=== PATIENT | female | born 1945 | race Caucasian/White ===

== ENCOUNTER 2016-05-01 10:37 | Inpatient (IN) | payer MEDICARE ==
[~2016-05-01] VITALS: Ht 157.5 cm; Wt 53.4 kg
[~2016-05-01 10:37] MED LIST: DIAZ10 PO; GABA300C5 PO; HYDR-3583 PO
[2016-05-03] MEDS ORDERED: AZEL1SPR2 EACH NARE (10:07)
[2016-05-06] MEDS ORDERED: THROMBIN (TOPICAL) 5,000 UNIT VIAL ONE (07:03)
[2016-05-06] MEDS ORDERED: GELFOAM SIZE 100 ONE (07:04)
[2016-05-06] MEDS ORDERED: LIDOCAINE 1%/EPINEPHrine 1:100,000 SOLN 20 ML VIAL ONE ×2 (07:04)
[2016-05-06] MEDS ORDERED: GENTAMICIN SULFATE 80 MG/2 ML VIAL ONE (07:04)
[2016-05-06 07:30] VITALS: BP 143/65; PULSE 98; RESP 16; TEMP 98.3; O2SAT 99
[2016-05-06] MEDS ORDERED: CETI10 PO (07:39)
[2016-05-06 07:54] LABS: AUTOMATED NEUTROPHIL # 3.9 TH/MM3 (1.8-7.7); BASOPHIL % 0.9 % (0.0-2.0); EOSINOPHIL # 0.1 TH/MM3 (0-0.4); EOSINOPHIL % 2.6 % (0.0-4.0); HEMATOCRIT 40.3 % (35.0-46.0); HEMO FLAGS DIFF FINAL; LYMPH % 11.3 % (9.0-44.0); LYMPHOCYTE # 0.6 TH/MM3 (1.0-4.8); MEAN CELL VOLUME 99.5 FL (80.0-100.0); MEAN CORPUSCULAR HEMOGLOBIN 34.3 PG (27.0-34.0); MEAN CORPUSCULAR HGB CONC 34.5 % (32.0-36.0); MONO % 10.9 % (0.0-8.0); NEUT % 74.3 % (16.0-70.0); PLATELET COUNT 206 TH/MM3 (150-450); RED BLOOD COUNT 4.04 MIL/MM3 (4.00-5.30); RED CELL DISTRIBUTION WIDTH 13.3 % (11.6-17.2); WHITE BLOOD COUNT 5.3 TH/MM3 (4.0-11.0)
[2016-05-06] MEDS ORDERED: ceFAZolin INJ 1,000 MG VIAL ONE (07:55)
[2016-05-06] MEDS ORDERED: SODIUM CHLORIDE 0.9% INJ 100 ML ONE (07:55)
[2016-05-06 08:01] LABS: APTT (PATIENT) 26.7 SEC (24.3-30.1); INTERNATIONAL NORMALIZED RATIO 0.9 RATIO; PROTHROMBIN TIME - PATIENT 10.3 SEC (9.8-11.6)
[2016-05-06 08:11] LABS: BICARBONATE 30.4 MEQ/L (21.0-32.0); POTASSIUM 4.2 MEQ/L (3.5-5.1)
[2016-05-06] MEDS ORDERED: LACTATED RINGER'S 1000 ML IV SCH (08:30)
[2016-05-06] MEDS ORDERED: ceFAZolin 1,000 MG/NS 100 ML IV SCH ×2 (08:30)
[2016-05-06] MEDS ORDERED: METOPROLOL TARTRATE 25 MG TAB PO PRN (08:30)
[2016-05-06] MEDS ORDERED: LACTATED RINGER'S 1000 ML INJ 1,000 ML IV SCH (08:30)
[2016-05-06] MEDS ORDERED: INSULIN HUMAN REGULAR 1,000 UNITS/10 ML VIAL SQ PRN (08:30)
[2016-05-06] MEDS ORDERED: SODIUM CHLORID 0.9% 500 ML IV SCH (08:30)
[2016-05-06] MEDS ORDERED: fentaNYL CITRATE 250 MCG/5 ML AMP ONE ×2 (08:34)
[2016-05-06] MEDS ORDERED: MIDAZOLAM HCL 2 MG/2 ML VIAL ONE (08:34)
[2016-05-06] MEDS ORDERED: PROPOFOL 500 MG/50 ML INJ 50 ML ONE (08:34)
[2016-05-06] MEDS ORDERED: FAMOTIDINE 20 MG/2 ML VIAL ONE (08:34)
[2016-05-06] MEDS ORDERED: HYDROmorphone HCL PF 2 MG/ML VIAL ONE (08:34)
[2016-05-06] MEDS ORDERED: DEXAMETHASONE SOD PHOS 4 MG/ML VIAL ONE (08:35)
[2016-05-06] MEDS ORDERED: ARTIFICIAL TEARS OPTH OINT 3.5 APPLIC/3.5 GM TUBO ONE (08:41)
[2016-05-06] MEDS ORDERED: PROPOFOL 200 MG/20 ML AMP IV ONE (09:14)
[2016-05-06] MEDS ORDERED: ONDANSETRON HCL 4 MG/2 ML VIAL IV PUSH ONE (09:14)
[2016-05-06] MEDS ORDERED: LACTATED RINGER'S 1000 ML INJ 1,000 ML IV ONE (09:14)
[2016-05-06] MEDS ORDERED: ePHEDrine/NS 50 MG/5 ML SYR IV ONE (09:14)
[2016-05-06] MEDS ORDERED: PHENYLEPH/NS 1000 MCG/10 ML SYR IV ONE (09:14)
[2016-05-06] MEDS ORDERED: DO NOT ADM ANY ANTICOAGULANT DRUGS XX PRN (13:32)
[2016-05-06] MEDS ORDERED: NALOXONE HCL 0.4 MG/ML AMP IV PRN (13:45)
[2016-05-06] MEDS ORDERED: SODIUM CHLORIDE 0.9% FLUSH 5 ML FLUSH IVF PRN (13:45)
--- NOTE | 2016-05-06 14:07 | PD.OP ---
Operative Report Date of Surgery: May 06, 2016 Preoperative Diagnosis: (1) Intervertebral cervical disc disorder with myelopathy, cervical region (2) Spinal stenosis in cervical region C2 3, C3 4, C4 5 stenosis with dorsal cord compression Cervical spondylosis and degenerative disc disease Cervical myelopathy Postoperative Diagnosis: (1) Intervertebral cervical disc disorder with myelopathy, cervical region (2) Spinal stenosis in cervical region C2 3, C3 4, C4 5 stenosis with dorsal cord compression Cervical spondylosis and degenerative disc disease Cervical myelopathy Procedure: C2 3, C3 4, C4 5 level decompressive [id number]-exxfgkdlfqlysx Anesthesia: Gen. Surgeon: Jarek Bray Timing Machine Operator(s): Seymour York Operation and Findings: Findings: Significant ligament hypertrophy at the levels of decompression with significant dorsal canal compression. Procedure in detail: The patient was brought into the operating room and general endotracheal anesthesia induced without difficulty. Lines were established by anesthesia Knee high sequential compression devices were placed Appropriate timeout procedure was performed with all personnel present and in agreement The Garcia 3 point fixation device was placed. The patient was in a cervical collar for positioning Leads for intraoperative neuro monitoring were placed in a baseline study obtained The patient was turned into prone position on the 3080 table on the Oscar frame with the undersigned maintaining control of the head and neck. The head and neck were secured to the operating room table with the Garcia adapter with the neck slightly flexed with 3-4 fingerbreadths between the chin and chest. The neck position was checked with intraoperative C-arm and felt to be satisfactory. The cervical collar was removed. All extremities were appropriately padded. The back of the head and neck were shaved with clippers and sterilely prepped and draped. 1% Xylocaine with epinephrine was used for local infiltration over the incision site was made in the midline posterior neck and carried sharply down to the spinous processes of . The microscope was used as needed during the decompression portion of the procedure.. On the right and left side the posterior muscle attachments and fascia were incised with the Bovie and elevated away from the lamina and facet and spinous processes at the C2-C5 levels with a ortiz elevator out to the lateral margin of the facets. The inferior aspect of the C2, C3, C4 lamina and superior C3, C4, C5 lamina were removed with the TPS drill with the 5 mm bone bur followed by the 4 mm samuel bur, and the Kerrison rongeur to further decompress the spinal canal at these levels. Hypertrophied ligamentum flavum was elevated away from the dura at each level with a thin ligament dissector and resected with the 3 mm thin footplate Kerrison rongeur, taking care not to place any significant compression on the dura or exiting nerve root. The dorsal lateral thecal sac appeared well decompressed at the end of the laminectomy portion of the procedure with good pulsations of the CSF space. The region was well irrigated with antibiotic irrigation. Bleeding was carefully controlled with bipolar forceps A 7 mm flat fluted drain was left at the operative site and brought out through an incision in the upper thoracic region and secured to the skin with nylon suture The closure was performed with 0 Vicryl interrupted for the deep and superficial fascia with 3-0 Vicryl interrupted subcutaneous closure and 4-0 Vicryl subcutaneous closure. A dressing of sterile Mastisol and Steri-Strips and a Primapore dressing was placed. The patient was placed back in a cervical collar and released from the Garcia adapter and turned back into supine position on the recovery room bed. The Garcia 3 point fixation device was then removed. The patient was taken to recovery room in stable condition All counts were correct at the end of the case. Estimated blood loss was 300 cc No specimen was sent to pathology Neural monitoring remained stable during the procedure Jarek Bray MD May 06, 2016 14:07
--- NOTE | 2016-05-06 14:18 | RADRPT ---
EXAM DATE/TIME: 05/06/2016 10:58 [facility] COMPARISON: FLUOROSCOPY PORTABLE UP TO 1HR, May 06, 2016, 0:00. INDICATIONS : C2-5 Laminectomy. MEDICAL HISTORY : Hypertension. Chronic obstructive pulmonary disease. Smoker. SURGICAL HISTORY : Fusion, cervical. Lobectomy. ENCOUNTER: Initial ACUITY: 1 day PAIN SCORE: Non-responsive. LOCATION: Cervical spine. FINDINGS: A single lateral view of the cervical spine was performed. The vertebral bodies are in normal alignm ent down to C7 without evidence of subluxation. There is anterior surgical plate and screws traversin g the cervical spine at the level of C5-C7. Surgical hardware is seen posterior to the levels of C2-C 4. Prevertebral soft tissues are normal in thickness. CONCLUSION: As above. Guerda Moise MD on May 06, 2016 at 14:14 Board Certified Radiologist. This report was verified electronically.
[2016-05-06] MEDS ORDERED: *morphine SULFATE 8 MG/ML PERIprocedure ONLY ONE (14:36)
[2016-05-06] MEDS: 1/2 NS + KCL 20 MEQ INJ 1,000 ML IV SCH ×2 (14:53→23:10)
[2016-05-06] MEDS ORDERED: RESP: ALBUTEROL 2.5 MG/3 ML NEB (PRN) NEB (15:00)
[2016-05-06] MEDS ORDERED: ACETAMINOPHEN/HYDROcodone 325 MG/5 MG TAB PO PRN (15:00)
[2016-05-06] MEDS ORDERED: PROMETHAZINE INJ 25 MG/ML VIAL IM PRN (15:00)
[2016-05-06] MEDS ORDERED: CYCLOBENZAPRINE HCL 10 MG TAB PO PRN (15:00)
[2016-05-06] MEDS ORDERED: ONDANSETRON HCL 4 MG/2 ML VIAL IV PRN (15:00)
[2016-05-06] MEDS ORDERED: HYDROmorphone HCL PF 1 MG/ML VIAL IV PRN (15:00)
[2016-05-06] MEDS ORDERED: *HYDROmorphone PF 1 MG VIAL PERIprocedural Use ONLY ONE (17:38)
[2016-05-06] MEDS ORDERED: HYDROmorphone HCL PF 1 MG/ML VIAL IV ONE (17:38)
[2016-05-06] MEDS: GABAPENTIN 300 MG CAP PO SCH (18:00)
[2016-05-06] MEDS: DOCUSATE SODIUM 100 MG CAP PO SCH (21:00)
[2016-05-06] MEDS: SODIUM CHLORIDE 0.9% FLUSH 5 ML FLUSH IVF SCH (21:00)
[2016-05-06 22:30] VITALS: BP 116/58; PULSE 83; RESP 16; TEMP 97.6; O2SAT 99
[2016-05-06] MEDS: ACETAMINOPHEN/HYDROcodone 325 MG/10 MG TAB PO PRN (23:10)
[2016-05-06] MEDS: DIAZEPAM 10 MG TAB PO PRN (23:10)
[2016-05-07] VITALS (8 sets, daily range): BP systolic 107–162; BP diastolic 52–70; PULSE 72–102; RESP 16–18; TEMP 97.3–102.2; O2SAT 94–100
[2016-05-07] MEDS: MORPHINE SULFATE 4 MG/ML INJ IV PRN ×3 (05:10→20:38)
[2016-05-07] MEDS: DOCUSATE SODIUM 100 MG CAP PO SCH ×2 (08:22→20:18)
[2016-05-07] MEDS: GABAPENTIN 300 MG CAP PO SCH ×3 (08:22→17:39)
[2016-05-07] MEDS: CETIRIZINE HCL 10 MG TAB PO SCH (08:22)
[2016-05-07] MEDS: PANTOPRAZOLE SOD 40 MG DELAYED RELEASE TAB PO SCH (08:22)
[2016-05-07] MEDS: SODIUM CHLORIDE 0.9% FLUSH 5 ML FLUSH IVF SCH ×2 (08:23→20:19)
[2016-05-07] MEDS: ACETAMINOPHEN/HYDROcodone 325 MG/10 MG TAB PO PRN ×3 (08:23→17:39)
[2016-05-07] MEDS: 1/2 NS + KCL 20 MEQ INJ 1,000 ML IV SCH ×2 (08:28→20:19)
[2016-05-07 11:31] LABS: AUTOMATED NEUTROPHIL # 6.5 TH/MM3 (1.8-7.7); BASOPHIL % 0.3 % (0.0-2.0); EOSINOPHIL % 0.4 % (0.0-4.0); HEMATOCRIT 36.7 % (35.0-46.0); HEMO FLAGS DIFF FINAL; LYMPH % 9.1 % (9.0-44.0); LYMPHOCYTE # 0.7 TH/MM3 (1.0-4.8); MEAN CELL VOLUME 98.7 FL (80.0-100.0); MEAN CORPUSCULAR HEMOGLOBIN 33.4 PG (27.0-34.0); MEAN CORPUSCULAR HGB CONC 33.9 % (32.0-36.0); MONO % 8.1 % (0.0-8.0); NEUT % 82.1 % (16.0-70.0); PLATELET COUNT 191 TH/MM3 (150-450); RED BLOOD COUNT 3.72 MIL/MM3 (4.00-5.30); RED CELL DISTRIBUTION WIDTH 13.1 % (11.6-17.2); WHITE BLOOD COUNT 7.9 TH/MM3 (4.0-11.0)
[2016-05-07 12:03] LABS: BICARBONATE 32.9 MEQ/L (21.0-32.0); POTASSIUM 3.7 MEQ/L (3.5-5.1)
[2016-05-07] MEDS: DIAZEPAM 10 MG TAB PO PRN ×2 (12:42→17:39)
[2016-05-07] MEDS: REMOVE OLD NICODERM (NICOTINE) PATCH TD SCH (20:30)
[2016-05-07] MEDS ORDERED: ACETAMINOPHEN 1000 MG/100 ML VIAL IV ONE (21:00)
[2016-05-07] MEDS ORDERED: ACETAMINOPHEN 325 MG TAB PO PRN (21:00)
--- NOTE | 2016-05-07 21:23 | HHI.NSPN ---
History Chief Complaint: neck pain Interval History 05/06/16: C2- C5 decompressive semilaminectomy 05/07/16: moderate drain output. Fever Review of Systems General: Positive for: fever System Review Comments Hand numbness improved post op left L5 distribution pain Exam Results Vital Signs Date Time Temp Pulse Resp B/P Pulse Ox O2 Delivery O2 Flow Rate FiO2 05/07/16 20:27 95 Nasal Cannula 05/07/16 16:00 98.0 96 16 107/52 05/07/16 07:24 3.00 Intake and Output 05/06/16 05/06/16 05/07/16 08:00 16:00 00:00 Intake Total 100 ml 240 ml Output Total 390 ml 895 ml Balance -290 ml -655 ml Physical Examination dressing dry Resp - mild wheeze Cardiac reg - no murmur alert appropriate moderate drain output sensory mild decreased hands motor normal all extremities Lab, Micro, Other Results Laboratory Tests Test 05/07/16 11:20 White Blood Count 7.9 TH/MM3 Red Blood Count 3.72 MIL/MM3 Hemoglobin 12.4 GM/DL Hematocrit 36.7 % Mean Corpuscular Volume 98.7 FL Mean Corpuscular Hemoglobin 33.4 PG Mean Corpuscular Hemoglobin 33.9 % Concent Red Cell Distribution Width 13.1 % Platelet Count 191 TH/MM3 Mean Platelet Volume 7.4 FL Neutrophils (%) (Auto) 82.1 % Lymphocytes (%) (Auto) 9.1 % Monocytes (%) (Auto) 8.1 % Eosinophils (%) (Auto) 0.4 % Basophils (%) (Auto) 0.3 % Neutrophils # (Auto) 6.5 TH/MM3 Lymphocytes # (Auto) 0.7 TH/MM3 Monocytes # (Auto) 0.6 TH/MM3 Eosinophils # (Auto) 0.0 TH/MM3 Basophils # (Auto) 0.0 TH/MM3 CBC Comment DIFF FINAL Differential Comment Sodium Level 142 MEQ/L Potassium Level 3.7 MEQ/L Chloride Level 103 MEQ/L Carbon Dioxide Level 32.9 MEQ/L Anion Gap 6 MEQ/L Blood Urea Nitrogen 7 MG/DL Creatinine 0.64 MG/DL Estimat Glomerular Filtration 92 ML/MIN Rate Random Glucose 101 MG/DL Calcium Level 8.8 MG/DL Medical Decision Making Impression and Plan Impression: Neuro exam stable post op Fever Plan Resp Tx Inc Spirometer Cont Drain PT MRI L-Spine - left radiculopathy Jarek Bray MD May 07, 2016 21:23
[2016-05-07] MEDS ORDERED: REMOVE OLD NICODERM (NICOTINE) PATCH TD SCH (21:30)
[2016-05-07] MEDS: NICOTINE 14 MG/24 HR PATCH TD SCH (22:08)
[2016-05-08] VITALS (8 sets, daily range): BP systolic 100–120; BP diastolic 49–78; PULSE 79–106; RESP 16–20; TEMP 97.8–100; O2SAT 94–100
[2016-05-08] MEDS: ACETAMINOPHEN/HYDROcodone 325 MG/10 MG TAB PO PRN ×5 (00:45→20:03)
[2016-05-08] MEDS: RESP: ALBUTEROL 2.5 MG/IPRATROPIUM 0.5 MG NEB (SCH) NEB ×4 (04:28→21:14)
[2016-05-08] MEDS: DOCUSATE SODIUM 100 MG CAP PO SCH ×2 (09:19→22:32)
[2016-05-08] MEDS: CETIRIZINE HCL 10 MG TAB PO SCH (09:19)
[2016-05-08] MEDS: NICOTINE 14 MG/24 HR PATCH TD SCH (09:19)
[2016-05-08] MEDS: PANTOPRAZOLE SOD 40 MG DELAYED RELEASE TAB PO SCH (09:19)
[2016-05-08] MEDS: GABAPENTIN 300 MG CAP PO SCH ×3 (09:19→20:03)
[2016-05-08] MEDS: SODIUM CHLORIDE 0.9% FLUSH 5 ML FLUSH IVF SCH ×2 (09:19→21:00)
[2016-05-08] MEDS: REMOVE OLD NICODERM (NICOTINE) PATCH TD SCH (09:20)
[2016-05-08] MEDS: MORPHINE SULFATE 4 MG/ML INJ IV PRN ×2 (11:54→15:22)
--- NOTE | 2016-05-08 13:06 | RADRPT ---
EXAM DATE/TIME: 05/08/2016 12:23 [facility] COMPARISON: CT LUMBAR SPINE W/O CONTRAST, June 05, 2015, 22:53. MRI HIP RIGHT W/O CONTRAST, October 17, 2015, 1 3:49. FLUOROSCOPY PORTABLE UP TO 1HR, May 06, 2016, 0:00. INDICATIONS : Radiculopathy down left leg. MEDICAL HISTORY : Carcinoma, lung. Chronic obstructive pulmonary disease. SURGICAL HISTORY : Fusion, cervical. Fusion, lumbar. Rt lobectomy ENCOUNTER: [facility]ela ACUITY: > 1 year PAIN SCORE: 4/10 LOCATION: lower back TECHNIQUE: Multiplanar multisequence MRI of the lumbar spine was performed without contrast. FINDINGS: The most caudal appearing lumbar vertebra is numbered as L5. VERTEBRAE: There is diffuse high T1 and T2 signal identified throughout the imaged thoracic and lumbar spine con sistent with fatty replacement of marrow. There is low T1 and T2 signal identified within the inferio r anterior aspect of the L1 vertebral body and adjacent superior endplate of the T2 vertebral body co rresponding to an area of dense sclerosis seen on comparison CT. There is posterior fusion hardware p resent at the level of L4/L5. CONUS: Normal level and configuration. T12-L1: The thecal sac has a normal diameter. No evidence of disc bulge or protrusion. The neural foramina are patent bilaterally. L1-L2: There is disc space narrowing and a broad-based posterior disc protrusion present which causes modera te narrowing of the spinal canal in the AP dimension. This appears to extend to the level of the neur al foramina bilaterally, right greater than left causing significant neural foraminal narrowing.. L2-L3: There is disc space narrowing and a small annular disc protrusion present which contributes to mild n arrowing of the spinal canal in the AP dimension. There are mild bilateral facet degenerative changes which contribute to mild narrowing of the neuroforaminal bilaterally, right greater than left. L3-L4: A small posterior and left sided disc protrusion which continues to mild narrowing of the spinal nicolas l in AP dimension. There are moderate bilateral facet degenerative changes which when combined with t he left-sided disc cause significant left-sided neural foraminal narrowing.. L4-L5: The thecal sac has a normal diameter. No evidence of disc bulge or protrusion. The neural foramina are patent bilaterally. L5-S1: The thecal sac has a normal diameter small broad-based posterior disc bulge present which does not si gnificantly narrow the spinal canal that extends to the left neuroforamen causing moderate left-sided neural foraminal narrowing.. The neural foramina are patent bilaterally. CONCLUSION: No abnormal marrow is seen to suggest metastatic disease. There are multiple levels of degenerative d isc changes which contribute to varying degrees of neural foraminal narrowing. There is moderate narr owing caused by the posterior central disc at the level of L1/L2.. Guerda Moise MD on May 08, 2016 at 12:55 Board Certified Radiologist. This report was verified electronically.
--- NOTE | 2016-05-08 20:06 | HHI.DCPOC ---
Discharge Care Plan Diagnosis: (1) Intervertebral cervical disc disorder with myelopathy, cervical region Your Health Problems Are: Difficulty with ADL Incision/Drains Exercise Tolerance Loss of Movements Chronic Pain Goals to Promote Your Health * To prevent worsening of your condition and complications * To maintain your health at the optimal level Directions to Meet Your Goals Take your medications as prescribed Follow your dietary instruction Follow activity as directed Keep your appointments as scheduled Take your immunizations and boosters as scheduled If your symptoms worsen call your PCP, if no PCP go to Urgent Care Center or Emergency Room Smoking is Dangerous to Your Health. Avoid second hand smoke Call the 24-hour hour crisis hotline for domestic abuse at Jarek Bray MD May 08, 2016 20:06
--- NOTE | 2016-05-08 20:08 | HHI.FF ---
Face to Face Verification Diagnosis: (1) Intervertebral cervical disc disorder with myelopathy, cervical region Home Health Nursing Order: Wound care and dressing changes Nursing assessment with vital signs Instructions: Assess home safety, fall risk, need for home physical therapy I have seen patient Gladys Leung on 05/08/16. My clinical findings support the need for the requested home health care services because: Ltd mobility - disease progression Deconditioned w/ increased weakness Limited ability to care for self High risk of falls I certify that my clinical findings support that this patient is homebound because: Post-op weakness Hx COPD- exertion dyspnea/weakness Unsteady gait/balance Unsafe to leave home unassisted Unable to use public transportation Jarek Bray MD May 08, 2016 20:08
--- NOTE | 2016-05-08 20:12 | HHI.DS ---
Discharge Summary Admission Date May 06, 2016 at 06:40 Discharge Date: May 09, 2016 Admitting Diagnosis (1) Intervertebral cervical disc disorder with myelopathy, cervical region Diagnosis: Principal Procedures 05/06/16: C2-C5 decompressive semi- laminectomy CBC/BMP: 05/07/16 1120 05/07/16 1120 Significant Findings Laboratory Tests Test 05/06/16 05/07/16 07:30 11:20 Mean Corpuscular Hemoglobin 34.3 PG (27.0-34.0) Neutrophils (%) (Auto) 74.3 % 82.1 % (16.0-70.0) (16.0-70.0) Monocytes (%) (Auto) 10.9 % 8.1 % (0.0-8.0) (0.0-8.0) Lymphocytes # (Auto) 0.6 TH/MM3 0.7 TH/MM3 (1.0-4.8) (1.0-4.8) Creatinine 0.42 MG/DL (0.50-1.00) Random Glucose 111 MG/DL (74-106) Red Blood Count 3.72 MIL/MM3 (4.00-5.30) Carbon Dioxide Level 32.9 MEQ/L (21.0-32.0) Imaging Last Impressions Lumbar Spine MRI 05/08/16 0000 Signed Impressions: Service Date/Time: Sunday, May 08, 2016 12:23 - CONCLUSION: No abnormal marrow is seen to suggest metastatic disease. There are multiple levels of degenerative disc changes which contribute to varying degrees of neural foraminal narrowing. There is moderate narrowing caused by the posterior central disc at the level of L1/L2.. Guerda Moise MD Cervical Spine X-Ray 05/06/16 0000 Signed Impressions: Service Date/Time: Friday, May 06, 2016 10:58 - CONCLUSION: As above. Guerda Moise MD Hospital Course Patient admitted for above noted procedure performed without complication Postop day #1 fever resolved with acetaminophen, breathing treatments. Postop day #2-mobilizing better out of bed. Pain still somewhat poorly controlled. IV Toradol added. Drain discontinued. Continuing physical therapy Pt Condition on Discharge: Stable Discharge Disposition: Disch w/ Home Health Serv Discharge Instructions DIET: Follow Instructions for: As Tolerated, No Restrictions ACTIVITIES You can perform: Weight Bearing As Dian Activities to Avoid: Lifting/Bending, Strenuous Activity New Medications: Hydrocodone-Acetaminophen (Hydrocodone-Acetaminophen) 10-325 mg Tab 1 TAB PO Q4H PRN PAIN SCALE 6 TO 10 #60 TAB Continued Medications: Azelastine Nasal Renovo (Azelastine Nasal Renovo) 0.1% Renovo 1 SPRAY EACH NARE BID Allergies #1 Ref 0 BOTTLE Cetirizine (Cetirizine) 10 Mg Tab 10 MG PO DAILY Allergies Ref 0 TAB Diazepam (Valium) 10 Mg Tab 10 MG PO TID PRN ANXIETY Ref 0 TAB Gabapentin (Gabapentin) 300 Mg Cap 300 MG PO TID #90 CAP Hydrocodone-Acetaminophen (Hydrocodone-Acetaminophen) 10-325 mg Tab 1 TAB PO Q4H PRN PAIN Ref 0 TAB Jarek Bray MD May 08, 2016 20:12
--- NOTE | 2016-05-08 20:15 | HHI.NSPN ---
History Chief Complaint: neck pain Interval History 05/06/16: C2- C5 decompressive semilaminectomy 05/07/16: moderate drain output. Fever Exam Results Vital Signs Date Time Temp Pulse Resp B/P Pulse Ox O2 Delivery O2 Flow Rate FiO2 05/08/16 18:15 98.0 91 20 104/59 96 05/08/16 15:47 21 05/07/16 20:27 Nasal Cannula 05/07/16 07:24 3.00 Intake and Output 05/07/16 05/07/16 05/08/16 08:00 16:00 00:00 Intake Total 360 ml 1399 ml 1200 ml Output Total 1200 ml 3030 ml 2115 ml Balance -840 ml -1631 ml -915 ml Physical Examination dressing dry Resp -clear to auscultation Cardiac reg - no murmur alert appropriate Mild drain output-mostly serous sensory mild decreased hands motor normal all extremities Ambulates with assist and physical therapy Lab, Micro, Other Results 05/08/16 lumbar spine MRI images reviewed.-Agree with findings as noted below: Lumbar Spine MRI 05/08/16 0000 Signed Impressions: Service Date/Time: Sunday, May 08, 2016 12:23 - CONCLUSION: No abnormal marrow is seen to suggest metastatic disease. There are multiple levels of degenerative disc changes which contribute to varying degrees of neural foraminal narrowing. There is moderate narrowing caused by the posterior central disc at the level of L1/L2.. Guerda Moise MD Cervical Spine X-Ray 05/06/16 0000 Signed Impressions: Service Date/Time: Friday, May 06, 2016 10:58 - CONCLUSION: As above. Guerda Moise MD Medical Decision Making Impression and Plan Impression: Neuro exam stable post op-remains moderately painful Fever-resolved Plan At Toradol for additional pain control Resp Tx Inc Spirometer Drain discontinued today PT-discussed with physical therapist today Left lumbar radiculopathy versus neuropathy-continue conservative treatment Discussed with patient. Anticipate discharge home 05/09/16 of she continues to improve in regards to pain vital signs remain stable without recurrent fever Jarek Bray MD May 08, 2016 20:15
[2016-05-08] MEDS: KETOROLAC TROMETHAMINE 60 MG/2 ML (IM) VIAL IM SCH (22:33)
[2016-05-09] VITALS (7 sets, daily range): BP systolic 91–137; BP diastolic 53–69; PULSE 69–105; RESP 16–18; TEMP 97.9–99.2; O2SAT 91–98
[2016-05-09] MEDS: RESP: ALBUTEROL 2.5 MG/IPRATROPIUM 0.5 MG NEB (SCH) NEB ×2 (03:57→10:21)
[2016-05-09] MEDS: KETOROLAC TROMETHAMINE 60 MG/2 ML (IM) VIAL IM SCH ×3 (04:41→14:52)
[2016-05-09] MEDS ORDERED: HYDR-3583 PO (08:54)
[2016-05-09] MEDS: SODIUM CHLORIDE 0.9% FLUSH 5 ML FLUSH IVF SCH (09:00)
[2016-05-09] MEDS: REMOVE OLD NICODERM (NICOTINE) PATCH TD SCH (09:00)
[2016-05-09] MEDS: DOCUSATE SODIUM 100 MG CAP PO SCH (09:07)
[2016-05-09] MEDS: PANTOPRAZOLE SOD 40 MG DELAYED RELEASE TAB PO SCH (09:07)
[2016-05-09] MEDS: CETIRIZINE HCL 10 MG TAB PO SCH (09:07)
[2016-05-09] MEDS: GABAPENTIN 300 MG CAP PO SCH ×2 (09:07→12:57)
[2016-05-09] MEDS: NICOTINE 14 MG/24 HR PATCH TD SCH (09:13)
[2016-05-09] MEDS ORDERED: POLYETHYLENE GLYCOL 17 GM PKG PO ONE (12:15)
[2016-05-09] MEDS: ACETAMINOPHEN/HYDROcodone 325 MG/10 MG TAB PO PRN (14:14)
[2016-05-09] MEDS: DIAZEPAM 10 MG TAB PO PRN (14:15)
[2016-07-31] MEDS ORDERED: GABA300C5 PO (12:30)
[2016-07-31] MEDS ORDERED: DIAZ10 PO (12:30)
== END 2016-05-09 16:46 | disposition home health service (06) | DRG 519 ==
LOC: HSDI 05-06 06:40 → HOCA 05-06 22:27
PROVIDERS: ADMIT Neurological Surgery; ATTEND Neurological Surgery
PROC: 00NW0ZZ Release Cervical Spinal Cord, Open Approach (ICD-10-PCS; principal; 2016-05-06 08:40)
DX: M50.021 Cervical disc disorder at C4-C5 level with myelopathy (principal); M47.12 Other spondylosis with myelopathy, cervical region; M48.02 Spinal stenosis, cervical region; M50.01 Cervical disc disorder with myelopathy, high cervical region; M50.30 Other cervical disc degeneration, unspecified cervical region; R50.9 Fever, unspecified
CPT/HCPCS: 72020; 72148; 76000; 80048; 85025; 85610; 85730; 86850; 86900; 86901; 94150; 94640; 94664; C1713; J0131; J0690; J1100; J1170; J1580; J1885; J2250; J2270; J2370; J2405; J3010; J7120; L0150; L0172

== ENCOUNTER 2016-08-08 14:22 | Emergency (ER) | payer MEDICARE ==
[~2016-08-08] VITALS: Ht 157.5 cm; Wt 54.5 kg
[~2016-08-08 14:22] MED LIST changes: +AZEL1SPR2 EACH NARE; +CETI10 PO
[2016-08-08 14:23] VITALS: BP 133/63; PULSE 114; RESP 20; TEMP 98.9; O2SAT 96
--- NOTE | 2016-08-08 14:38 | PD ---
Physical Exam Time Seen by Provider: 14:35 Narrative 71 F c/o L forearm and wrist pain after fall last night. Denies hitting head, LOC. Left hip pain too. Denies neck pain, back pain. Denies N/V. Ambulatory in triage. VSS Seen in triage, awaiting bed placement. Data Data Last Documented VS Vital Signs Date Time Temp Pulse Resp B/P Pulse Ox O2 Delivery O2 Flow Rate FiO2 08/08/16 14:23 98.9 114 20 133/63 96 Room Air [facility] Supervised Visit with LLOYD: Ragini Zavala Aug 08, 2016 14:38
--- NOTE | 2016-08-08 16:45 | PD ---
HPI Chief Complaint: Fall Time Seen by Provider: 16:30 Travel History International Travel<30 days: No Contact w/Intl Traveler<30days: No Traveled to known affect area: No History of Present Illness HPI Patient is a 71-year-old female presenting to emergency department for evaluation of left hand, wrist, forearm pain. Patient states she slipped yesterday falling onto her hand. Her loss of consciousness. She denies any shortness of breath, chest pain, dizziness before the fall. Patient states she falls frequently. She reports the pain is a 10 out of 10, she's been taking hydrocodone 10/325. PFSH Past Medical History Arthritis: Yes Blood Disorders: No Anxiety: Yes Depression: No Cancer: Yes (LUNG) Cardiovascular Problems: No Chemotherapy: Yes (03/2013) COPD: Yes Diabetes: No Diminished Hearing: No Endocrine: No Genitourinary: No Hepatitis: No Hiatal Hernia: No Hypertension: Yes Immune Disorder: No Medical other: No Musculoskeletal: Yes (ARTHRITIS, DDD) Neurologic: No (MULTIPLE FALLS FROM LUMBAR ISSUE LEFT LEG, NUMBNESS IN HAND AND FEET) Psychiatric: Yes (ANXIETY) Reproductive: No Respiratory: Yes (ALLERGIES) Radiation Therapy: Yes (11/2015) Thyroid Disease: No Tetanus Vaccination: Unknown Influenza Vaccination: Yes ?: Not Menopausal: Yes Past Surgical History Abdominal Surgery: No AICD: No Body Medical Devices: HARDWARE RIGHT UPPER ARM, CAGE LUMBAR, HARDWARE CERVICAL Cardiac Surgery: No Section: Yes Ear Surgery: No Endocrine Surgery: No Eye Surgery: No Genitourinary Surgery: No Gynecologic Surgery: Yes (C SECTION) Joint Replacement: No Neurologic Surgery: No Oral Surgery: No Pacemaker: No Thoracic Surgery: Yes (RIGHT MIDDLE LOBECTOMY, IMPLANTED PORT INSERTION, PORT REMOVAL) Other Surgery: Yes (CESARIAN, PORT PLACEMENT, C4-C5 FUSION, L4-L5 FUSION) Social History Alcohol Use: Yes (occ) Tobacco Use: Yes (cig. 1ppd, ) Substance Use: No Allergies-Medications (Allergen,Severity, Reaction): Coded Allergies: No Known Allergies (Unverified , 08/08/16) Reported Meds & Prescriptions Reported Meds & Active Scripts Active Valium (Diazepam) 10 Mg Tab 10 Mg PO TID PRN Gabapentin 300 Mg Cap 300 Mg PO TID Hydrocodone-Acetaminophen 10-325 mg Tab 1 Tab PO Q4H PRN Reported Cetirizine (Cetirizine HCl) 10 Mg Tab 10 Mg PO DAILY Azelastine Nasal Vest (Azelastine HCl) 0.1% Vest 1 Vest EACH NARE BID Review of Systems Except as stated in HPI: all other systems reviewed are Neg Musculoskeletal: Positive: Myalgias, Arthralgias, Edema, Pain Skin: Positive Change in Pigmentation Physical Exam Narrative GENERAL: Well-developed, well-nourished, alert elderly female. Resting comfortably in no acute distress. SKIN: Focused skin assessment warm/dry. Edema and ecchymosis noted to the distal left forearm, wrist, dorsal aspect of left hand. Positive radial pulse, brisk less than 3 second capillary refill. HEAD: Atraumatic. Normocephalic. EYES: Pupils equal and round. No scleral icterus. No injection or drainage. ENT: No nasal bleeding or discharge. Mucous membranes pink and moist. NECK: Trachea midline. No JVD. CARDIOVASCULAR: Regular rate and rhythm. No murmur appreciated. RESPIRATORY: No accessory muscle use. Clear to auscultation. Breath sounds slightly diminished in bases. GASTROINTESTINAL: Abdomen soft, non-tender, nondistended. Hepatic and splenic margins not palpable. MUSCULOSKELETAL: No obvious deformities. No clubbing. No cyanosis. No edema. NEUROLOGICAL: Awake and alert. No obvious cranial nerve deficits. Motor grossly within normal limits. Normal speech. PSYCHIATRIC: Appropriate mood and affect; insight and judgment normal. Data Data Last Documented VS Vital Signs Date Time Temp Pulse Resp B/P Pulse Ox O2 Delivery O2 Flow Rate FiO2 08/08/16 18:38 88 18 135/65 96 Room Air 08/08/16 14:23 98.9 Orders Hand, Complete ([id number]) (08/08/16 ) Wrist, Complete ([id number]) (08/08/16 ) Forearm (2vws) (08/08/16 ) Complete Blood Count With Diff (08/08/16 16:32) Basic Metabolic Panel (Bmp) (08/08/16 16:32) Act Partial Throm Time (Ptt) (08/08/16 16:32) Prothrombin Time / Inr (Pt) (08/08/16 16:32) Iv Access Insert/Monitor (08/08/16 16:32) Splinting (08/08/16 ) Fiberglass Sugartong Sp Ad Arm (08/08/16 ) Sling Cradle Arm (08/08/16 ) Morphine Inj (Morphine Inj) (08/08/16 18:30) Labs Laboratory Tests Test 08/08/16 17:04 White Blood Count 6.2 TH/MM3 Red Blood Count 3.90 MIL/MM3 Hemoglobin 13.2 GM/DL Hematocrit 38.2 % Mean Corpuscular Volume 97.9 FL Mean Corpuscular Hemoglobin 33.9 PG Mean Corpuscular Hemoglobin 34.6 % Concent Red Cell Distribution Width 14.1 % Platelet Count 166 TH/MM3 Mean Platelet Volume 7.5 FL Neutrophils (%) (Auto) 82.0 % Lymphocytes (%) (Auto) 8.9 % Monocytes (%) (Auto) 7.4 % Eosinophils (%) (Auto) 0.4 % Basophils (%) (Auto) 1.3 % Neutrophils # (Auto) 5.0 TH/MM3 Lymphocytes # (Auto) 0.6 TH/MM3 Monocytes # (Auto) 0.5 TH/MM3 Eosinophils # (Auto) 0.0 TH/MM3 Basophils # (Auto) 0.1 TH/MM3 CBC Comment DIFF FINAL Differential Comment Prothrombin Time 10.3 SEC Prothromb Time International 0.9 RATIO Ratio Activated Partial 26.8 SEC Thromboplast Time Sodium Level 142 MEQ/L Potassium Level 3.3 MEQ/L Chloride Level 105 MEQ/L Carbon Dioxide Level 31.9 MEQ/L Anion Gap 5 MEQ/L Blood Urea Nitrogen 5 MG/DL Creatinine 0.45 MG/DL Estimat Glomerular Filtration 138 ML/MIN Rate Random Glucose 92 MG/DL Calcium Level 8.5 MG/DL MDM Medical Decision Making Medical Screen Exam Complete: Yes Emergency Medical Condition: Yes Interpretation(s) Last Impressions Wrist X-Ray 08/08/16 0000 Signed Impressions: Service Date/Time: July 16:46 - CONCLUSION: Slightly comminuted, slightly angled distal radial fracture without extent into the radiocarpal articulation. Jean-Claude Lynch MD Radius/Ulna X-Ray 08/08/16 0000 Signed Impressions: Service Date/Time: July 16:48 - CONCLUSION: Distal radial fracture as described above. Jean-Claude Lynch MD Hand X-Ray 08/08/16 0000 Signed Impressions: Service Date/Time: July 16:44 - CONCLUSION: Erosive osteoarthritic change involving multiple DIP joints and PIP joints. No acute fracture is seen in the hand although there is a distal radial fracture. Jean-Claude Lynch MD Laboratory Tests Test 08/08/16 17:04 White Blood Count 6.2 TH/MM3 Red Blood Count 3.90 MIL/MM3 Hemoglobin 13.2 GM/DL Hematocrit 38.2 % Mean Corpuscular Volume 97.9 FL Mean Corpuscular Hemoglobin 33.9 PG Mean Corpuscular Hemoglobin 34.6 % Concent Red Cell Distribution Width 14.1 % Platelet Count 166 TH/MM3 Mean Platelet Volume 7.5 FL Neutrophils (%) (Auto) 82.0 % Lymphocytes (%) (Auto) 8.9 % Monocytes (%) (Auto) 7.4 % Eosinophils (%) (Auto) 0.4 % Basophils (%) (Auto) 1.3 % Neutrophils # (Auto) 5.0 TH/MM3 Lymphocytes # (Auto) 0.6 TH/MM3 Monocytes # (Auto) 0.5 TH/MM3 Eosinophils # (Auto) 0.0 TH/MM3 Basophils # (Auto) 0.1 TH/MM3 CBC Comment DIFF FINAL Differential Comment Prothrombin Time 10.3 SEC Prothromb Time International 0.9 RATIO Ratio Activated Partial 26.8 SEC Thromboplast Time Sodium Level 142 MEQ/L Potassium Level 3.3 MEQ/L Chloride Level 105 MEQ/L Carbon Dioxide Level 31.9 MEQ/L Anion Gap 5 MEQ/L Blood Urea Nitrogen 5 MG/DL Creatinine 0.45 MG/DL Estimat Glomerular Filtration 138 ML/MIN Rate Random Glucose 92 MG/DL Calcium Level 8.5 MG/DL Vital Signs Date Time Temp Pulse Resp B/P Pulse Ox O2 Delivery O2 Flow Rate FiO2 08/08/16 16:07 17 08/08/16 14:23 98.9 114 20 133/63 96 Room Air Differential Diagnosis Fracture versus sprain versus strain versus dislocation versus other Narrative Course Patient is a 71-year-old female presented to our evaluation of left arm and wrist pain after fall she sustained yesterday. She is neurovascularly intact. Labs and imaging were ordered and pending. X-ray shows distal radius fracture. There is a transverse fracture of the distal radius 1 cm proximal to the articulating surface the ulna is intact, the radial head is intact. CBC is unremarkable, chemistry with a potassium of 3.3 otherwise unremarkable. Coags are normal. She last ate at 4 PM this afternoon. [facility] ortho surgeon paged, Dr. Connors. Pt placed in sugar tong splint. Dr. Connors requested to see patient in the office at 7:30 in the morning. Patient will continue home dose of hydrocodone. She is encouraged to elevate extremity, return to emergency department any new or worsening symptoms. She is encouraged to keep appointment with Dr. Connors in the morning. She verbalized understanding of these instructions. Patient stable for discharge. Diagnosis Primary Impression: Distal radius fracture, left Qualified Code: S52.592A - Other closed fracture of distal end of left radius , initial encounter Referrals: Jai Connors MD [address] Mcdonald will see you in the office tomorrow morning at 7:30 Patient Instructions: Arm Fracture in Adults (ED), General Instructions Additional Instructions: Follow-up with Dr. Connors in the office tomorrow morning at 7:30 Extremity elevated to help with swelling May take her home dose of pain medication as previously prescribed Follow-up with her primary doctor Return to emergency department for any new or worsening symptoms Med/Other Pt SpecificInfo: No Change to Meds Disposition: 01 DISCHARGE HOME Condition: Stable Elvia Chao Aug 08, 2016 16:45
--- NOTE | 2016-08-08 17:00 | PD ---
Data Data Last Documented VS Vital Signs Date Time Temp Pulse Resp B/P Pulse Ox O2 Delivery O2 Flow Rate FiO2 08/08/16 16:07 17 08/08/16 14:23 98.9 114 133/63 96 Room Air Orders Hand, Complete ([id number]) (08/08/16 ) Wrist, Complete ([id number]) (08/08/16 ) Forearm (2vws) (08/08/16 ) Complete Blood Count With Diff (08/08/16 16:32) Basic Metabolic Panel (Bmp) (08/08/16 16:32) Act Partial Throm Time (Ptt) (08/08/16 16:32) Prothrombin Time / Inr (Pt) (08/08/16 16:32) Iv Access Insert/Monitor (08/08/16 16:32) MDM Supervised Visit with LLOYD: Yes Narrative Course The history, exam, and medical decision-making in the associated mid-level provider note were completed with my assistance. I reviewed and agree with the findings presented. I attest that I had a [id number] encounter with the patient on the same day, and personally performed and documented my assessment and findings in the medical record. *My assessment and Findings: 71-year-old woman who presents with fall on her wrist, x-ray shows left distal radius fracture. We'll plan splint, outpatient follow-up. Jean-Claude Oquendo MD Aug 08, 2016 17:00
--- NOTE | 2016-08-08 17:03 | RADRPT ---
EXAM DATE/TIME: 08/08/2016 16:48 [facility] COMPARISON: No previous studies available for comparison. INDICATIONS : Fracture. MEDICAL HISTORY : None. SURGICAL HISTORY : None. ENCOUNTER: Initial ACUITY: 2 days PAIN SCORE: 10/10 LOCATION: Left forearm FINDINGS: Two-view left forearm demonstrates there is a transverse fracture of the distal radius 1 cm proximal to the articulating surface. The ulna is unremarkable. The radial head is intact. CONCLUSION: Distal radial fracture as described above. Jean-Claude Lynch MD on August 08, 2016 at 17:00 Board Certified Radiologist. This report was verified electronically.
--- NOTE | 2016-08-08 17:05 | RADRPT ---
EXAM DATE/TIME: 08/08/2016 16:44 [facility] COMPARISON: No previous studies available for comparison. INDICATIONS : Trauma MEDICAL HISTORY : None. SURGICAL HISTORY : None. ENCOUNTER: Initial ACUITY: 2 days PAIN SCORE: 10/10 LOCATION: Left hand FINDINGS: Three-view left hand demonstrates there is marked osteoarthritis involving the second and third DIP j oints and the fifth DIP and multiple PIP joints. No acute fracture is seen. There is no visible eros ions. There is a distal radial fracture. CONCLUSION: Erosive osteoarthritic change involving multiple DIP joints and PIP joints. No acute fracture is seen in the hand although there is a distal radial fracture. Jean-Claude Lynch MD on August 08, 2016 at 17:02 Board Certified Radiologist. This report was verified electronically.
--- NOTE | 2016-08-08 17:09 | RADRPT ---
EXAM DATE/TIME: 08/08/2016 16:46 [facility] COMPARISON: No previous studies available for comparison. INDICATIONS : Trauma MEDICAL HISTORY : None. SURGICAL HISTORY : None. ENCOUNTER: Initial ACUITY: 2 days PAIN SCORE: 10/10 LOCATION: Left wrist FINDINGS: Three-view left wrist demonstrates there is a transverse fracture of the distal radius approximately 1 cm proximal to the growth plate. There is a slight volar angulation to the fracture. There is some comminution posteriorly. I do not believe it is intraarticular. The distal ulna is unremarkable. The carpal bones are unremarkable. CONCLUSION: Slightly comminuted, slightly angled distal radial fracture without extent into the r adiocarpal articulation. Jean-Claude Lynch MD on August 08, 2016 at 17:01 Board Certified Radiologist. This report was verified electronically.
[2016-08-08 17:15] LABS: BASOPHIL # 0.1 TH/MM3 (0-0.2); BASOPHIL % 1.3 % (0.0-2.0); EOSINOPHIL % 0.4 % (0.0-4.0); HEMATOCRIT 38.2 % (35.0-46.0); HEMO FLAGS DIFF FINAL; LYMPH % 8.9 % (9.0-44.0); LYMPHOCYTE # 0.6 TH/MM3 (1.0-4.8); MEAN CELL VOLUME 97.9 FL (80.0-100.0); MEAN CORPUSCULAR HEMOGLOBIN 33.9 PG (27.0-34.0); MEAN CORPUSCULAR HGB CONC 34.6 % (32.0-36.0); MONO % 7.4 % (0.0-8.0); PLATELET COUNT 166 TH/MM3 (150-450); RED CELL DISTRIBUTION WIDTH 14.1 % (11.6-17.2); WHITE BLOOD COUNT 6.2 TH/MM3 (4.0-11.0)
[2016-08-08 17:33] LABS: BICARBONATE 31.9 MEQ/L (21.0-32.0); POTASSIUM 3.3 MEQ/L (3.5-5.1)
[2016-08-08 17:41] LABS: APTT (PATIENT) 26.8 SEC (24.3-30.1); INTERNATIONAL NORMALIZED RATIO 0.9 RATIO; PROTHROMBIN TIME - PATIENT 10.3 SEC (9.8-11.6)
[2016-08-08] MEDS ORDERED: MORPHINE SULFATE 4 MG/ML INJ IV PUSH ONE (18:30)
[2016-08-08 18:38] VITALS: BP 135/65; PULSE 88; RESP 18; O2SAT 96
[2016-08-08 19:09] VITALS: RESP 18
== END 2016-08-08 19:16 | disposition home or self-care (01) ==
LOC: NEPD 14:22
DX: S52.592A Other fractures of lower end of left radius, initial encounter for closed fracture (principal); W18.30XA Fall on same level, unspecified, initial encounter; Y93.9 Activity, unspecified; Y92.9 Unspecified place or not applicable; Y99.9 Unspecified external cause status
CPT/HCPCS: 29125; 73090; 73110; 73130; 80048; 85025; 85610; 85730; 96374; 99283; J2270

== ENCOUNTER 2018-01-01 15:31 | Inpatient (IN) ==
--- NOTE | 2018-01-01 17:47 | ED ---
HPI General Chief Complaint: Extremity Injury, Lower Stated Complaint: rt hip pain Time Seen by Provider: 01/01/18 16:46 Source: patient Mode of arrival: ambulatory Limitations: no limitations History of Present Illness HPI Narrative: 72-year-old female presents to the emergency department with complaint of right hip pain and right thigh pain after she fell on Friday night from tripping over an uneven step. She says she has been falling a lot lately secondary to her chronic low back pain that she needs surgery for. She denies hitting her head or loss of consciousness. Denies anticoagulant therapy. Denies syncopal episode. Denies chest pain, shortness breath, abdominal pain, nausea, vomiting. Denies paresthesias, loss of sensation to the affected extremity. Says she has been in bed since she fell because she cannot bear weight. She has been using a bedpan to urinate and and has not been getting up to go to the bathroom. She has been taking hydrocodone for her pain. Rates pain 10/10. Constantly aggravated. Is somewhat relieved by the hydrocodone. Primary care provider is Dr. koch that he D. History of chronic low back pain, lung cancer, history of chemo and radiation. No allergies. Has no other medical complaints. No other modifying factors or associated signs and symptoms. Related Data Home Medications Medication Instructions Recorded Confirmed Unable to Obtain Home Meds 01/01/18 01/01/18 Allergies Allergy/AdvReac Type Severity Reaction Status Date / Time No Known Allergies Allergy Uncoded 10/04/16 15:32 Review of Systems ROS: all other systems reviewed are negative [facility] Social History Social History Substance History: No History of Abuse Smoking Status: Former smoker How Often Do You Have a Drink Containing Alcohol: Monthly or less Recent Travel in [facility] within the Last 8 Weeks: No Recent Out of Country Travel within the Last 8 Weeks: No Immunization History Tetanus Immunization: Unsure Hx Influenza Vaccine This Season: Yes Exam Narrative Exam Narrative: GENERAL: Thin, elderly, female patient, in no acute distress SKIN: Warm and dry. HEAD: Atraumatic. Normocephalic. EYES: Pupils equal and round. No scleral icterus. No injection or drainage. ENT: Mucosa pink and moist. Airway patent. NECK: Trachea midline. CARDIOVASCULAR: Regular rate and rhythm. No murmur appreciated. RESPIRATORY: No accessory muscle use. Clear to auscultation. Breath sounds equal bilaterally. GASTROINTESTINAL: Abdomen soft, non-tender, nondistended. Hepatic and splenic margins not palpable. Bowel sounds are active 4 quadrants. MUSCULOSKELETAL: Right lower extremity with external rotation noted; tenderness to palpation to the thigh and hip area; unable to assess range of motion secondary to pain patient guarding; right lower extremity is supple and non- tense with 2+ pedal pulse and sensory intact; toes are pink and warm and with sensory intact. No leg length discrepancy noted. No obvious deformities. No clubbing. No cyanosis. No edema. NEUROLOGICAL: Awake and alert. Oriented 3. No obvious cranial nerve deficits. Motor grossly within normal limits. Normal speech. PSYCHIATRIC: Appropriate mood and affect; insight and judgment normal. Course Initial Documented Vital Signs Temperature 98.6 F 01/01/18 16:22 Pulse Rate 121 H 01/01/18 16:22 Respiratory Rate 14 01/01/18 16:22 Blood Pressure 148/63 H 01/01/18 16:22 Pulse Oximetry 96 01/01/18 16:22 Last Documented Vital Signs Temperature 98.6 F 01/01/18 16:22 Pulse Rate 95 H 01/01/18 19:53 Respiratory Rate 16 01/01/18 19:53 Blood Pressure 132/68 01/01/18 19:53 Pulse Oximetry 95 01/01/18 19:53 Medical Decision Making MDM Narrative Medical decision making narrative: 72-year-old female with right hip and thigh pain after mechanical fall on Friday. Right hip with AP pelvis, right femur x- ray ordered. Patient took hydrocodone prior to arrival. 1900Patient is signed out to me. X-ray imaging does show an intertrochanteric fracture of the right proximal femur. Preop lab work, chest x-ray, EKG are ordered. 2009 Lab work is reviewed and without acute concern. Patient is now requesting pain control. She will be given 2 mg of morphine IV. A call was placed to Dr. Ravi, orthopedic on-call. Medical Screen Exam Complete: Yes Emergency Medical Condition: Yes Differential Diagnosis Differential Diagnosis: Fall, hip fracture, pelvic fracture, femur fracture, leg strain, muscle spasms Lab Data Result diagrams: 01/01/18 19:00 01/01/18 19:00 Lab Results 09/10/1301/01/18 01/01/18 Range/Units 19:00 19:00 19:00 WBC 6.6 (4.0-11.0) th/mm3 RBC 4.19 (4.00-5.30) mil/mm3 Hgb 14.5 (11.6-15.3) gm/dL Hct 42.3 (35.0-46.0) % MCV 100.8 H (80.0-100.0) fL MCH 34.5 H (27.0-34.0) pg MCHC 34.2 (32.0-36.0) % RDW 13.9 (11.6-17.2) % Plt Count 167 (150-450) th/mm3 MPV 8.2 (7.0-11.0) fL Neut % (Auto) 79.7 H (16.0-70.0) % Lymph % (Auto) 9.2 (9.0-44.0) % [place] % (Auto) 10.2 H (0.0-8.0) % Eos % (Auto) 0.5 (0.0-4.0) % Baso % (Auto) 0.4 (0.0-2.0) % Neut # (Auto) 5.2 (1.8-7.7) th/mm3 Lymph # (Auto) 0.6 L (1.0-4.8) th/mm3 [place] # (Auto) 0.7 (0.0-0.9) th/mm3 Eos # (Auto) 0.0 (0.0-0.4) th/mm3 Baso # (Auto) 0.0 (0.0-0.2) th/mm3 WBC Differential . Differential Comment Auto diff final PT 9.8 (9.8-11.6) sec INR 1.0 Ratio APTT 28.0 (24.3-30.1) sec Sodium 140 (136-145) meq/L Potassium 3.9 (3.5-5.1) meq/L Chloride 102 (98-107) meq/L Carbon Dioxide 29.5 (21.0-32.0) meq/L Anion Gap 9 (5-15) meq/L BUN 11 (7-18) mg/dL Creatinine 0.38 L (0.50-1.00) mg/dL Estimated GFR Greater than 89 (>89) mL/min Random Glucose 95 (74-106) mg/dL Calcium 8.9 (8.5-10.1) mg/dL Imaging Data Radiologist's impression: Femur X-Ray 01/01/18 16:59 CONCLUSION: Acute intertrochanteric fracture of the right proximal femur. Pelvis X-Ray 01/01/18 16:59 CONCLUSION: 1. Acute intertrochanteric fracture of the right proximal femur. 2. Mild degenerative changes involving the hips. Chest X-Ray 01/01/18 18:47 CONCLUSION: Right perihilar streakiness is noted consistent with atelectasis and/or developing infiltrate. Clinical correlation is recommended. Discharge Plan Discharge Disposition Patient Disposition: 30 Still Patient Discharge Condition Condition: Stable Discharge Details Diagnosis: Fracture of hip Physicians Team ED Provider: Rodo Triplett ED Midlevel Provider: Sandra Cornejo Primary Care Provider: Home Bowles Rxs /Orders / Referrals /Forms Prescriptions: No Action Unable to Obtain Home Meds RF: 0 Status ED Status: With Doctor
--- NOTE | 2018-01-01 18:18 | XR ---
EXAM DATE: 01/01/2018 5:59 PM EDT AGE/SEX: 72 years / Female INDICATIONS: Right hip pain. CLINICAL DATA: This is the patient's initial encounter. Patient reports that signs and symptoms have been present for 1 day and indicates a pain score of 10/10. MEDICAL/SURGICAL HISTORY: None. None. [place] [facility] [place]. . FINDINGS: There is evidence of an acute intertrochanteric fracture of the right proximal femur. No hip dislocat ion is noted. CONCLUSION: Acute intertrochanteric fracture of the right proximal femur. Electronically signed by: Rodo James MD 01/01/2018 6:16 PM EDT
--- NOTE | 2018-01-01 18:18 | XR ---
EXAM DATE: 01/01/2018 5:57 PM EDT AGE/SEX: 72 years / Female INDICATIONS: Right femur pain. CLINICAL DATA: This is the patient's initial encounter. Patient reports that signs and symptoms have been present for 1 day and indicates a pain score of 10/10. MEDICAL/SURGICAL HISTORY: None. None. COMPARISON: [facility], HIP RIGHT LATERAL ONLY W AP PELVIS, 10/16/2015. . FINDINGS: There is evidence of an acute intertrochanteric fracture of the right proximal femur. Mild degenerati ve changes are noted involving the hips. Hardware is noted within the lower lumbar spine status post fusion. CONCLUSION: 1. Acute intertrochanteric fracture of the right proximal femur. 2. Mild degenerative changes involving the hips. Electronically signed by: Rodo James MD 01/01/2018 6:17 PM EDT
--- NOTE | 2018-01-01 19:16 | XR ---
EXAM DATE: 01/01/2018 7:06 PM EDT AGE/SEX: 72 years / Female INDICATIONS: Evaluate for pneumonia, pneumothorax or communicable disease. Pre op for right hip fra cture. CLINICAL DATA: This is the patient's initial encounter. Patient reports that signs and symptoms have been present for 1 day and indicates a pain score of 10/10. MEDICAL/SURGICAL HISTORY: . Lung Cancer, . [facility], right shoulder fracture. [place] [facility] [place]. . FINDINGS: Right perihilar streakiness is noted consistent with atelectasis and/or developing infiltrate. Clinic al correlation is recommended. The left lung is clear. The heart is normal. Degenerative changes and scoliosis of the thoracic spine are noted. Hardware is noted within the right humerus and lower cervi keyshawn spine. CONCLUSION: Right perihilar streakiness is noted consistent with atelectasis and/or developing infiltrate. Clinic al correlation is recommended. Electronically signed by: Rodo James MD 01/01/2018 7:15 PM EDT
[2018-01-01 19:46] LABS: Baso % (Auto) 0.4 % (0.0-2.0); Eos % (Auto) 0.5 % (0.0-4.0); Hematocrit 42.3 % (35.0-46.0); Hemoglobin 14.5 gm/dL (11.6-15.3); Lymph # (Auto) 0.6 th/mm3 (1.0-4.8); Lymph % (Auto) 9.2 % (9.0-44.0); Mean Corpuscular HGB Conc 34.2 % (32.0-36.0); Mean Corpuscular Hemoglobin 34.5 pg (27.0-34.0); Mean Corpuscular Volume 100.8 fL (80.0-100.0); Mean Platelet Volume 8.2 fL (7.0-11.0); Mono # (Auto) 0.7 th/mm3 (0.0-0.9); Mono % (Auto) 10.2 % (0.0-8.0); Neut # (Auto) 5.2 th/mm3 (1.8-7.7); Neut % (Auto) 79.7 % (16.0-70.0); Platelet Count 167 th/mm3 (150-450); Red Blood Count 4.19 mil/mm3 (4.00-5.30); Red Cell Distribution Width 13.9 % (11.6-17.2); White Blood Count 6.6 th/mm3 (4.0-11.0)
[2018-01-01 19:58] LABS: Anion Gap 9 meq/L (5-15); Blood Urea Nitrogen 11 mg/dL (7-18); Calcium 8.9 mg/dL (8.5-10.1); Carbon Dioxide 29.5 meq/L (21.0-32.0); Chloride 102 meq/L (98-107); Glomerular Filtration Rate Greater Than 89 mL/min (>89); Glucose,Random 95 mg/dL (74-106); Potassium 3.9 meq/L (3.5-5.1); Sodium 140 meq/L (136-145)
[2018-01-01 20:02] LABS: Prothrombin Time 9.8 sec (9.8-11.6)
[2018-01-01] MEDS ORDERED: Morphine Sulfate Inj 2 MG/ML Vial IV.PUSH ONE (20:11)
--- NOTE | 2018-01-01 20:59 | P.HP ---
History of Present Illness Service: [facility] Adult med Primary Care Physician: Home Bowles MD Chief Complaint: RLE pain History of Present Illness: 72-year-old female with history of anxiety, lung cancer, lumbar and cervical degenerative disc disease presents via private vehicle to ER with complaint of right lower pain ongoing for 2 days. Patient lives with her and apparently some grandchildren as well and noted that 2 days ago she was walking outside to talk with her when she tripped on some uneven concrete falling onto her right side. She noted immediate pain and was unable to ambulate well since that time. Her family apparently urged her to come to the ER over the last 2 days but she was "stubborn" and did not go. Patient reports that she felt the pain would go away but notes that she has been lying in bed the last 2 days strongly. They wish in the ER revealed significantly tender right lower extremity with x-ray findings consistent with right intertrochanteric fracture. Adult medicine service has been asked to admit the patient by orthopedics for planned surgery tomorrow. Pain is relatively well controlled as long as she keeps her right lower extremity still. Her only complaint presently is that she wants something to eat. [facility] Plan cancer dating back to 2012 with subsequent robotic assisted right middle lobectomy in November 2012. Anxiety Chronic tobacco use Lumbar and cervical degenerative disc disease with stenosis Chronic back pain due to compression fractures Frequent falls with fractures Osteoporosis [facility] Robotic assisted right middle lobectomy with mediastinal node dissection November 2012 External fixation left wrist fracture 2016 Internal fixation after open reduction right humerus fracture September 2015 Cervical spine surgery in 2016 and apparently in 1998 as well Lumbar spine surgery in 2005 C/S 1978 Home meds (somewhat difficult to obtain) Azalastine nasal spray twice a day Cetirizine 10 mg daily Gabapentin 300 mg 3 times daily Lortab 10/325 one every 6 hours as needed pain Valium 10 mg twice daily as needed anxiety ALL NKDA SH Lives at home with her of 25 years, second marriage Has several grandchildren and possibly one great grandchild living in the home as well Smokes 1-1/2 pack per day as she is done for over 50 years Drinks an occasional beer but no regular alcohol use 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 This includes certification that hospital inpatient services are reasonable and necessary and in the case of services not specified as inpatient-only under 42 CFR 419.22(n), that they are appropriately provided as inpatient services in accordance to with the 2-midnight benchmark under 43 CFR 412.3(e) Estimated Total Length of Stay (Days): 3 Plans for Post Hospital Care: SNF Review of Systems Constitutional: Reports body ache(s), Reports fatigue, Reports weakness Cardiovascular: Denies chest pain, Denies chest pain at rest, Denies chest pain with activity, Denies excessive sweating, Denies fainting, Denies fast heart rate, Denies foot swelling, Denies generalized swelling, Denies irregular heart rhythm, Denies leg pain with activity, Denies leg sores, Denies leg swelling, Denies lightheadedness, Denies radiating jaw, neck or arm pain, Denies rapid, pounding, or irregular heartbeat, Denies shortness of breath, Denies shortness of breath with activity, Denies shortness of breath when lying down, Denies shortness of breath causing sudden awakening, Denies slow heart rate, Denies other Respiratory: Reports cough, Denies change in phlegm color, Denies chest congestion, Denies coughing up blood, Denies excessive phlegm production, Denies pain on inspiration, Denies pain with cough, Denies shortness of breath, Denies shortness of breath with activity, Denies snoring, Denies stridor, Denies wheezing, Denies other Musculoskeletal: Reports abnormal walking, Reports back pain, Reports joint pain , Reports limited joint movement, Reports neck pain, Reports radiating pain into limb Psychiatric: Reports abnormal sleep pattern, Reports anxiety PMFSH - History History Provided By: Patient - Tobacco History Smoking Status: Former smoker - Alcohol History How Often Do You Have a Drink Containing Alcohol: Monthly or less - Substance Use History Substance History: No History of Abuse - Travel History Recent Travel in the USA Within the Last 8 Weeks: No Recent Travel Out of the Country Within the Last 8 Weeks: No - Immunization History Tetanus Immunization: Unsure Hx Influenza Vaccine This Season: Yes Medications and Allergies Active Medications: Active Medications Diphenhydramine HCl (Benadryl) 25 mg PO Q4H PRN PRN Reason: ITCHING Diphenhydramine HCl (Benadryl Inj) 25 mg IV.PUSH Q4H PRN PRN Reason: ITCHING Docusate Sodium (Colace) 100 mg PO BID [facility] Morphine Sulfate (Morphine Inj) 4 mg IV.PUSH Q4H PRN PRN Reason: Pain Scale 3 To 10 Sodium Chloride (Ns Flush) 2 ml IV.FLUSH BID [facility]VIS Sodium Chloride (Ns Flush) 2 ml IV.FLUSH PRN PRN PRN Reason: FLUSH AFTER USING IV ACCESS Allergies Allergy/AdvReac Type Severity Reaction Status Date / Time No Known Allergies Allergy Uncoded 10/04/16 15:32 Home Medications Medication Instructions Recorded Confirmed Type Unable to Obtain Home Meds 01/01/18 01/01/18 History Exam Vital signs: Vital Signs 01/01/18 16:22 01/01/18 19:53 Temperature 98.6 F Pulse Rate 121 H 95 H Respiratory Rate 14 16 Blood Pressure 148/63 H 132/68 Pulse Oximetry 96 95 Intake & Output 01/01/18 01/01/18 01/02/18 06:59 18:59 06:59 Weight 43.091 kg Narrative: GENERAL: Thin, no acute distress unless her right lower extremity is moved, alert and oriented. SKIN: Warm and dry. Small area of abrasion over the right elbow as well as the left lateral ankle HEAD: Atraumatic. Normocephalic. EYES: Pupils equal and round. No scleral icterus. No injection or drainage. ENT: No nasal bleeding or discharge. Mucous membranes pink and moist. NECK: Trachea midline. No JVD. CARDIOVASCULAR: Regular rate and rhythm. Distant heart sounds RESPIRATORY: No accessory muscle use. Breath sounds equal bilaterally. Diminished breath sounds at the bases. No wheezing. GASTROINTESTINAL: Abdomen soft, non-tender, nondistended. Hepatic and splenic margins not palpable. MUSCULOSKELETAL: Extremities without clubbing, cyanosis, or edema. Right lower extremity with foot slightly externally rotated. Tenderness to palpation and exquisite discomfort with any movement of the proximal right lower extremity. Moves all toes well. Post-traumatic changes left wrist. Postsurgical changes right humerus/shoulder NEUROLOGICAL: Awake and alert. No obvious cranial nerve deficits. Motor grossly within normal limits. Five out of 5 muscle strength in the arms and legs. Normal speech. Right lower extremity exam limited by pain. PSYCHIATRIC: Appropriate mood and affect; insight and judgment normal. Results - Labs CBC & Chem 7: 01/01/18 19:00 01/01/18 19:00 Labs: Laboratory Results - last 24 hr 01/01/18 01/01/18 01/01/18 19:00 19:00 19:00 WBC 6.6 RBC 4.19 Hgb 14.5 Hct 42.3 MCV 100.8 H MCH 34.5 H MCHC 34.2 RDW 13.9 Plt Count 167 MPV 8.2 Neut % (Auto) 79.7 H Lymph % (Auto) 9.2 [place] % (Auto) 10.2 H Eos % (Auto) 0.5 Baso % (Auto) 0.4 Neut # (Auto) 5.2 Lymph # (Auto) 0.[address] [place] # (Auto) 0.7 Eos # (Auto) 0.0 Baso # (Auto) 0.0 WBC Differential . Differential Comment Auto diff final PT 9.8 INR 1.0 APTT 28.0 Sodium 140 Potassium 3.9 Chloride 102 Carbon Dioxide 29.5 Anion Gap 9 BUN 11 Creatinine 0.38 L Estimated GFR Greater than 89 Random Glucose 95 Calcium 8.9 - Imaging Impressions Femur X-Ray 01/01/18 16:59 CONCLUSION: Acute intertrochanteric fracture of the right proximal femur. Pelvis X-Ray 01/01/18 16:59 CONCLUSION: 1. Acute intertrochanteric fracture of the right proximal femur. 2. Mild degenerative changes involving the hips. Chest X-Ray 01/01/18 18:47 CONCLUSION: Right perihilar streakiness is noted consistent with atelectasis and/or developing infiltrate. Clinical correlation is recommended. Caprini VTE Risk Assessment Caprini VTE Risk Assessment: Moderate/High Risk (score >= 2) Caprini Risk Assessment Model: Point Value = 1 Point Value = 2 Point Value = 3 Point Value = 5 Age 41-60 Minor surgery BMI > 25 kg/m2 Swollen legs Varicose veins or History of unexplained or recurrent spontaneous Oral contraceptives or hormone replacement Sepsis (< 1 month) Serious lung disease, including pneumonia (< 1 month) Abnormal pulmonary function Acute myocardial infarction Congestive heart failure (< 1 month) History of inflammatory bowel disease Medical patient at bed rest Age 61-74 Arthroscopic surgery Major open surgery (> 45 min) Laparoscopic surgery (> 45 min) Malignancy Confined to bed (> 72 hours) Immobilizing plaster cast Central venous access Age >= 75 History of VTE Family history of VTE Factor V Leiden Prothrombin [id number] Lupus anticoagulant Anticardiolipin antibodies Elevated serum homocysteine Heparin-induced thrombocytopenia Other congenital or acquired thrombophilia Stroke (< 1 month) Elective arthroplasty Hip, pelvis, or leg fracture Acute spinal cord injury (< 1 month) Prophylaxis Regimen: Total Risk Factor Score Risk Level Prophylaxis Regimen 0-1 Low Early ambulation 2 Moderate Order ONE of the following: *Sequential Compression Device (SCD) *Heparin 5000 units SQ BID 3-4 Higher Order ONE of the following medications: *Heparin 5000 units SQ TID *Enoxaparin/Lovenox 40 mg SQ daily (WT < 150 kg, CrCl > 30 mL/min) *Enoxaparin/Lovenox 30 mg SQ daily (WT < 150 kg, CrCl > 10-29 mL/min) *Enoxaparin/Lovenox 30 mg SQ BID (WT < 150 kg, CrCl > 30 mL/min) AND/OR *Sequential Compression Device (SCD) 5 or more Highest Order ONE of the following medications: *Heparin 5000 units SQ TID (Preferred with Epidurals) *Enoxaparin/Lovenox 40 mg SQ daily (WT < 150 kg, CrCl > 30 mL/min) *Enoxaparin/Lovenox 30 mg SQ daily (WT < 150 kg, CrCl > 10-29 mL/min) *Enoxaparin/Lovenox 30 mg SQ BID (WT < 150 kg, CrCl > 30 mL/min) AND *Sequential Compression Device (SCD) Assessment and Plan - Assessment (1) Fracture of hip Code(s): S72.009A - Fracture of unspecified part of neck of unspecified femur, initial encounter for closed fracture Status: Acute Plan: We will provide pain medication. Surgical management per orthopedics. Will need postop DVT prophylaxis measures. (2) Tobacco abuse Code(s): Z72.0 - Tobacco use Status: Acute Plan: We will provide NicoDerm as well as DuoNeb. Encourage patient to stop smoking but at this point is doubtful that she will given duration and the previous ailments she has suffered. (3) Lumbar disc disease Code(s): M51.9 - Unspecified thoracic, thoracolumbar and lumbosacral intervertebral disc disorder Status: Acute Plan: Outpatient per neurosurgery. Provide pain management. (4) Cervical spine degeneration Code(s): M47.812 - Spondylosis without myelopathy or radiculopathy, cervical region Status: Acute Plan: Outpatient per neurosurgery and pain management. - Plan Code Status: full Discussed Condition With: pt and ER provider (1) Fracture of hip Qualifiers: Encounter type: initial encounter Fracture type: closed Laterality: right Qualified Code(s): S72.001A - Fracture of unspecified part of neck of right femur, initial encounter for closed fracture
[2018-01-01] MEDS: Morphine Inj 4 MG/ML Vial IV.PUSH PRN (21:41)
[2018-01-01] MEDS: Docusate Sodium 100 MG Capsule PO SCH (21:42)
[2018-01-02] MEDS: Morphine Inj 4 MG/ML Vial IV.PUSH PRN ×3 (06:21→22:05)
--- NOTE | 2018-01-02 08:07 | P.CONOP ---
[facility] Orthopedics Consult Note - [facility] Consult date: 01/02/18 Consult reason: fracture Chief complaint: R Intertrochanteric FR Narrative: 72-year-old female with history of anxiety, lung cancer, lumbar and cervical degenerative disc disease presents via private vehicle to ER with complaint of right lower pain ongoing for 2 days. Patient lives with her and apparently some grandchildren as well and noted that 2 days ago she was walking outside to talk with her when she tripped on some uneven concrete falling onto her right side. She noted immediate pain and was unable to ambulate well since that time. Her family apparently urged her to come to the ER over the last 2 days but she was "stubborn" and did not go. Patient reports that she felt the pain would go away but notes that she has been lying in bed the last 2 days strongly. They wish in the ER revealed significantly tender right lower extremity with x-ray findings consistent with right intertrochanteric fracture. Adult medicine service has been asked to admit the patient by orthopedics for planned surgery tomorrow. Pain is relatively well controlled as long as she keeps her right lower extremity still. Her only complaint presently is that she wants something to eat. Review of Systems Denies F/C, N/V, CP or AP, throat pain, blurry vision, cough, difficulty with urination, rash, numbness or tingling, weakness, back pain Denies other extremity pain Reports right hip pain PMFSH - History History Provided By: Patient - Tobacco History Second Hand Smoke Exposure: No Tobacco Use In Past 30 Days: Yes Smoking Status: Current every day smoker Tobacco Type: Cigarettes - Alcohol History How Often Do You Have a Drink Containing Alcohol: Monthly or less - Substance Use History Substance History: No History of Abuse - Travel History Recent Travel in the [place] Within the Last 8 Weeks: No Recent Travel Out of the Country Within the Last 8 Weeks: No - Immunization History Tetanus Immunization: Unsure Hx Influenza Vaccine This Season: No Medications and Allergies Active Medications: Active Medications Albuterol (Duoneb Neb (Prn)) 1 ampul NEB Q4HR NEB PRN PRN Reason: sob, wheeze Diphenhydramine HCl (Benadryl) 25 mg PO Q4H PRN PRN Reason: ITCHING Diphenhydramine HCl (Benadryl Inj) 25 mg IV.PUSH Q4H PRN PRN Reason: ITCHING Docusate Sodium (Colace) 100 mg PO BID [facility] Last Admin: 01/01/18 21:42 Dose: Not Given Gabapentin (Neurontin) 300 mg PO TID [facility] Lorazepam (Ativan Inj) 1 mg IV.PUSH Q4H PRN PRN Reason: agitation, anxiety Last Admin: 01/01/18 23:12 Dose: 1 mg Morphine Sulfate (Morphine Inj) 4 mg IV.PUSH Q4H PRN PRN Reason: Pain Scale 3 To 10 Last Admin: 01/02/18 06:21 Dose: 4 mg Nicotine (Habitrol 21 Mg Patch.24 Hr) 1 patch T-DERMAL DAILY [facility] Ondansetron HCl (Zofran Inj) 4 mg IV.PUSH Q6H PRN PRN Reason: NAUSEA/VOMITING Last Admin: 01/02/18 06:21 Dose: 4 mg Patch Removal (Remove Old Patch) 1 each T-DERMAL DAILY [facility] Sodium Chloride (Ns Flush) 2 ml IV.FLUSH BID [facility] Last Admin: 01/01/18 21:42 Dose: Not Given Sodium Chloride (Ns Flush) 2 ml IV.FLUSH PRN PRN PRN Reason: FLUSH AFTER USING IV ACCESS Allergies Allergy/AdvReac Type Severity Reaction Status Date / Time No Known Allergies Allergy Uncoded 10/04/16 15:32 Home Medications Medication Instructions Recorded Confirmed Type Unable to Obtain Home Meds 01/01/18 01/01/18 History Exam Vital signs: Vital Signs 01/01/18 16:22 01/01/18 19:53 01/01/18 21:43 Temperature 98.6 F Pulse Rate 121 H 95 H Respiratory Rate 14 16 Blood Pressure 148/63 H 132/68 Pulse Oximetry 96 95 95 01/02/18 00:00 01/02/18 04:00 Temperature 98.6 F 99.1 F Pulse Rate 94 H 96 H Respiratory Rate 18 18 Blood Pressure 106/55 L 121/58 L Pulse Oximetry 93 L 95 Intake & Output 01/01/18 01/02/18 01/02/18 18:59 06:59 18:59 Intake Total 100 / 100 Balance 100 / 100 Weight 43.091 kg 44 kg Intake: IV 100 / 100 Rocephin Inj 1,000 MG In NS Inj 100 / 100 100 ML @ 200 mls/hr IV.SIG ONCE ONE Rx#:[id number] Other: # Voids 2 Date of Last Bowel Movement 12/30/17 Weight On Admission 43.091 kg Narrative: Awake, alert, NAD Normocephalic Pupils equal No JVD Moist mucous membranes Nonlabored respirations Regular rate Soft abdomen RLE: +logroll, unable to assess hip and knee ROM due to pain. NVI distally, BCR. Neg Homans BUE and LLE: no TTP or visible deformities, full active ROM and strength throughout. NVI distally, BCR. Neg Homans No rash Normal affect Results - Labs Result Diagrams: 01/01/18 19:00 01/01/18 19:00 Labs: Laboratory Results - last 24 hr 01/01/18 01/01/18 01/01/18 19:00 19:00 19:00 WBC 6.6 RBC 4.19 Hgb 14.5 Hct 42.3 MCV 100.8 H MCH 34.5 H MCHC 34.2 RDW 13.9 Plt Count 167 MPV 8.2 Neut % (Auto) 79.7 H Lymph % (Auto) 9.2 [place] % (Auto) 10.2 H Eos % (Auto) 0.5 Baso % (Auto) 0.4 Neut # (Auto) 5.2 Lymph # (Auto) 0.6 L [place] # (Auto) 0.7 Eos # (Auto) 0.0 Baso # (Auto) 0.0 WBC Differential . Differential Comment Auto diff final PT 9.8 INR 1.0 APTT 28.0 Sodium 140 Potassium 3.9 Chloride 102 Carbon Dioxide 29.5 Anion Gap 9 BUN 11 Creatinine 0.38 L Estimated GFR Greater than 89 Random Glucose 95 Calcium 8.9 Blood Type Antibody Screen 01/02/18 05:26 WBC RBC Hgb Hct MCV MCH MCHC RDW Plt Count MPV Neut % (Auto) Lymph % (Auto) [place] % (Auto) Eos % (Auto) Baso % (Auto) Neut # (Auto) Lymph # (Auto) [place] # (Auto) Eos # (Auto) Baso # (Auto) WBC Differential Differential Comment PT INR APTT Sodium Potassium Chloride Carbon Dioxide Anion Gap BUN Creatinine Estimated GFR Random Glucose Calcium Blood Type B Positive Antibody Screen Negative - Diagnostic results Imaging: Impressions Femur X-Ray 01/01/18 16:59 CONCLUSION: Acute intertrochanteric fracture of the right proximal femur. Pelvis X-Ray 01/01/18 16:59 CONCLUSION: 1. Acute intertrochanteric fracture of the right proximal femur. 2. Mild degenerative changes involving the hips. Chest X-Ray 01/01/18 18:47 CONCLUSION: Right perihilar streakiness is noted consistent with atelectasis and/or developing infiltrate. Clinical correlation is recommended. Assessment and Plan - Assessment and Plan 72-year-old female with right intertrochanteric femur fracture Radiographs were reviewed by myself with the patient. Patient does have right intertrochanteric femur fracture. I discussed with the patient given the nature of her fracture, I would recommend surgical intervention in the form of intramedullary nail of right intertrochanteric femur fracture. Risks of surgery including but not limited to: Infection, nonunion or malunion, hardware malposition or failure, neurovascular injury, persistent pain and/or stiffness, possible need for further surgery, and other unforeseen complications were all discussed with the patient. At this time she is consented to the above- mentioned procedure. Patient is nothing by mouth for surgery later today. I did discuss postoperative course with the patient. I explained to the patient that these fractures do take at least 3 months to fully heal. She likely will be partial weightbearing for short. Initially postoperatively. However, she will slowly be progressive weightbearing as tolerated likely around the 2 week mona. Given her fracture did occur approximately 2-3 days ago she has been bedbound, I would recommend an ultrasound of bilateral lower extremity to rule out DVT.
[2018-01-02] MEDS: Docusate Sodium 100 MG Capsule PO SCH ×2 (09:29→21:12)
[2018-01-02] MEDS: Gabapentin 300 MG Capsule PO SCH ×3 (09:30→17:03)
--- NOTE | 2018-01-02 10:33 | US ---
EXAM DATE: 01/02/2018 10:28 AM EDT AGE/SEX: 72 years / Female INDICATIONS: Bilateral leg pain. CLINICAL DATA: This is the patient's initial encounter. Patient reports that signs and symptoms have been present for 2 days and indicates a pain score of 2/10. MEDICAL/SURGICAL HISTORY: Carcinoma, lung. Anxiety. Cervical degenerative disc disease. Right h ip fracture. None. COMPARISON: No prior exams available for comparison. TECHNIQUE: Venous ultrasound of both lower extremities was performed from the inguinal ligament to t he proximal calf. Real-time, color Doppler and spectral tracing, compression and augmentation techni ques were used. FINDINGS: Right Leg: Normal compression of the deep venous system from the inguinal region to the proximal keyshawn f. No echogenic clot is seen. Normal response of the venous system to augmentation and respiration. Left Leg: Normal compression of the deep venous system from the inguinal region to the proximal calf . No echogenic clot is seen. Normal response of the venous system to augmentation and respiration. Other: None. CONCLUSION: No evidence of deep venous thrombosis. Electronically signed by: Don Kinney MD 01/02/2018 10:32 AM EDT
--- NOTE | 2018-01-02 10:56 | P.PNIM ---
Subjective Interval history: sinus drainage.cough/congestion since yesterday olivia helped Physical Exam Vital signs: Vital Signs 01/01/18 16:22 01/01/18 19:53 01/01/18 21:43 Temperature 98.6 F Pulse Rate 121 H 95 H Respiratory Rate 14 16 Blood Pressure 148/63 H 132/68 Pulse Oximetry 96 95 95 01/02/18 00:00 01/02/18 04:00 Temperature 98.6 F 99.1 F Pulse Rate 94 H 96 H Respiratory Rate 18 18 Blood Pressure 106/55 L 121/58 L Pulse Oximetry 93 L 95 Intake & Output 01/01/18 01/02/18 01/02/18 18:59 06:59 18:59 Intake Total 100 / 100 Balance 100 / 100 Weight 43.091 kg 44 kg Intake: IV 100 / 100 Rocephin Inj 1,000 MG In NS Inj 100 / 100 100 ML @ 200 mls/hr IV.SIG ONCE ONE Rx#:[id number] Other: # Voids 2 Date of Last Bowel Movement 12/30/17 Weight On Admission 43.091 kg heart reg lung course bs abd s/nt ext no edema Results - Labs CBC & Chem 7: 01/01/18 19:00 01/01/18 19:00 Laboratory Results - last 24 hr 01/01/18 01/01/18 01/01/18 19:00 19:00 19:00 WBC 6.6 RBC 4.19 Hgb 14.5 Hct 42.3 MCV 100.8 H MCH 34.5 H MCHC 34.2 RDW 13.9 Plt Count 167 MPV 8.2 Neut % (Auto) 79.7 H Lymph % (Auto) 9.2 [place] % (Auto) 10.2 H Eos % (Auto) 0.5 Baso % (Auto) 0.4 Neut # (Auto) 5.2 Lymph # (Auto) 0.6 L [place] # (Auto) 0.7 Eos # (Auto) 0.0 Baso # (Auto) 0.0 WBC Differential . Differential Comment Auto diff final PT 9.8 INR 1.0 APTT 28.0 Sodium 140 Potassium 3.9 Chloride 102 Carbon Dioxide 29.5 Anion Gap 9 BUN 11 Creatinine 0.38 L Estimated GFR Greater than 89 Random Glucose 95 Calcium 8.9 Blood Type Antibody Screen 01/02/18 05:26 WBC RBC Hgb Hct MCV MCH MCHC RDW Plt Count MPV Neut % (Auto) Lymph % (Auto) [place] % (Auto) Eos % (Auto) Baso % (Auto) Neut # (Auto) Lymph # (Auto) [place] # (Auto) Eos # (Auto) Baso # (Auto) WBC Differential Differential Comment PT INR APTT Sodium Potassium Chloride Carbon Dioxide Anion Gap BUN Creatinine Estimated GFR Random Glucose Calcium Blood Type B Positive Antibody Screen Negative - Imaging Impressions Femur X-Ray 01/01/18 16:59 CONCLUSION: Acute intertrochanteric fracture of the right proximal femur. Pelvis X-Ray 01/01/18 16:59 CONCLUSION: 1. Acute intertrochanteric fracture of the right proximal femur. 2. Mild degenerative changes involving the hips. Chest X-Ray 01/01/18 18:47 CONCLUSION: Right perihilar streakiness is noted consistent with atelectasis and/or developing infiltrate. Clinical correlation is recommended. Venous Doppler Study 01/02/18 08:07 CONCLUSION: No evidence of deep venous thrombosis. Assessment and Plan - Assessment (1) Fracture of hip Code(s): S72.009A - Fracture of unspecified part of neck of unspecified femur, initial encounter for closed fracture Status: Acute Plan: 1. Acute fx right proximal femur. intertrochanteric fx. trip and fall 2. chronic back pain from lumbar spinal stenosis 3. squamous cell ca lung. s/p robotic middle lobectomy followed by chemotherapy. subsequent stereotactic radiation to right middle lobe nodule/L1 met. currently with 2 spiculated nodules one in each lung ongoing tobacco use 4. sinus congestion/post nasal drip with cough Ortho planning to OR for IM nail fixation pain control prn duonebs. claritin/mucinex nicotine patch. dvt prophylaxis IS PT will plan for snf. (2) Lumbar stenosis Code(s): M48.061 - Spinal stenosis, lumbar region without neurogenic claudication Status: Chronic (3) Lung cancer Code(s): C34.90 - Malignant neoplasm of unspecified part of unspecified bronchus or lung Status: Chronic (1) Fracture of hip Qualifiers: Encounter type: initial encounter Fracture type: closed Laterality: right Qualified Code(s): S72.001A - Fracture of unspecified part of neck of right femur, initial encounter for closed fracture
[2018-01-02] MEDS: Loratadine 10 MG Tablet PO SCH (11:00)
[2018-01-02] MEDS: guaiFENesin 600 MG ER Tablet PO SCH ×2 (11:00→21:12)
--- NOTE | 2018-01-02 13:55 | ECG ---
Date Performed: 01/01/2018 Time Performed: 19:19:48 PTAGE: 72 years EKG: Sinus rhythm NONSPECIFIC T-WAVE ABNORMALITY BORDERLINE ECG Since the PREVIOUS TRACING , no significant change noted PREVIOUS TRACIN10/17/2015 05.06 DOCTOR: Peyton Laird Interpretating Date/Time 01/02/2018 13:53:37
[2018-01-02] MEDS ORDERED: Lidocaine PF 1% Inj 5 ML Syringe INFILTRATN ONE (17:45)
--- NOTE | 2018-01-02 18:26 | P.OP ---
Date of procedure: 01/02/18 Procedure: Intramedullary nail right intertrochanteric femur fracture Implants: Synthes Anesthesia: GETA Surgeon: Evelin Ravi MD Estimated blood loss (mL): 25 Pathology: none sent Operation and Findings: Indications for procedure: Patient is a 72-year-old female who sustained a mechanical fall 2 days prior to presentation. Upon presentation to the emergency department for inability to ambulate, patient was found to have a displaced right intertrochanteric femur fracture. Recommendation for operative intervention in the form of intramedullary nail of her right intertrochanteric femur fracture. Risks, benefits, alternatives were discussed with the patient. At this time she has consented to the above-mentioned procedure. Description of procedure: Patient was brought back to the operating room where general anesthesia then ensued. She was then carefully positioned supine on the operating room fracture table with all bony prominences well-padded. Patient was then prepped and draped in standard sterile fashion. Preoperative antibiotics were given within 1 hour of incision. A timeout was performed to identify the correct patient, side, site and procedure to be performed. The femur was reduced with traction and rotation on the fracture table. A small approximately 1-2 inch incision was made just proximal and posterior to the greater trochanter. Sharp dissection was made to the skin, subcutaneous tissue and fascia. A guidewire was then placed into the tip of the greater trochanter and advanced to the lesser trochanter region. This was verified to be in the center of the greater trochanter on both AP and lateral images. An opening reamer was then placed over the guidewire to allow access to the femoral canal and advanced to the lesser trochanteric region. A Synthes 130 11 mm diameter TFN nail was then placed into the tip of the greater trochanter and advanced into the femur past the fracture site. This was advanced to appropriate position on both AP and lateral radiographs. A small lateral incision was made to allow the triple sleeve for the proximal locking blade to be placed down to the lateral aspect of the proximal femur. A guidewire was then advanced into the femoral neck and into the femoral head in a center center position. This was verified on both AP and lateral radiographs. This was subsequently measured , drilled and a proximal locking blade placed. This was again verified to be in appropriate AP and lateral radiographs. The proximal locking screw was then tightened down and backed off a half of turn. Traction was then removed from the femur. Another small lateral incision was made to the skin, subcutaneous tissue and fascia to allow the triple sleeve to be placed down to the lateral aspect of the femur for the distal locking screw. This was subsequently drilled , measured and placed. The insertion handle was removed. Final radiographs demonstrated the fracture was well aligned, hardware was in good position. At this time all incisions were irrigated with normal saline laden with gentamicin. The deep tissue was closed with Vicryl sutures and the skin closed with elisa. Sterile dressings were applied. Patient was then carefully transition off of the fracture table and awoken from general anesthesia. Disposition: Partial weightbearing 50% right lower extremity.
--- NOTE | 2018-01-02 18:29 | P.PNOP ---
Subjective Interval history: POD#0 s/p R IMN for intertrochanteric femur fracture Physical Exam Vital signs: Vital Signs 01/01/18 19:53 01/01/18 21:43 01/02/18 00:00 Temperature 98.6 F Pulse Rate 95 H 94 H Respiratory Rate 16 18 Blood Pressure 132/68 106/55 L Pulse Oximetry 95 95 93 L 01/02/18 04:00 01/02/18 08:00 01/02/18 10:53 Temperature 99.1 F 99.9 F H Pulse Rate 96 H 94 H Respiratory Rate 18 14 Blood Pressure 121/58 L 98/53 L Pulse Oximetry 95 98 92 L 01/02/18 12:00 01/02/18 16:25 Temperature 98.7 F Pulse Rate 91 H Respiratory Rate 12 Blood Pressure 116/55 L Pulse Oximetry 98 98 Intake & Output 01/01/18 01/02/18 01/02/18 18:59 06:59 18:59 Intake Total 100 / 100 500 / 500 Output Total 25 / 25 Balance 100 / 100 475 / 475 Weight 43.091 kg 44 kg Intake: IV 100 / 100 Rocephin Inj 1,000 MG In NS Inj 100 / 100 100 ML @ 200 mls/hr IV.SIG ONCE ONE Rx#:[id number] Anesthesia Amount 500 / 500 Output: Estimated Blood Loss 25 / 25 Other: # Voids 2 Date of Last Bowel Movement 12/30/17 12/30/17 Weight On Admission 43.091 kg Results - Labs CBC & Chem 7: 01/01/18 19:00 01/01/18 19:00 Laboratory Results - last 24 hr 01/01/18 01/01/18 01/01/18 19:00 19:00 19:00 WBC 6.6 RBC 4.19 Hgb 14.5 Hct 42.3 MCV 100.8 H MCH 34.5 H MCHC 34.2 RDW 13.9 Plt Count 167 MPV 8.2 Neut % (Auto) 79.7 H Lymph % (Auto) 9.2 [place] % (Auto) 10.2 H Eos % (Auto) 0.5 Baso % (Auto) 0.4 Neut # (Auto) 5.2 Lymph # (Auto) 0.6 L [place] # (Auto) 0.7 Eos # (Auto) 0.0 Baso # (Auto) 0.0 WBC Differential . Differential Comment Auto diff final PT 9.8 INR 1.0 APTT 28.0 Sodium 140 Potassium 3.9 Chloride 102 Carbon Dioxide 29.5 Anion Gap 9 BUN 11 Creatinine 0.38 L Estimated GFR Greater than 89 Random Glucose 95 Calcium 8.9 Blood Type Antibody Screen 01/02/18 05:26 WBC RBC Hgb Hct MCV MCH MCHC RDW Plt Count MPV Neut % (Auto) Lymph % (Auto) [place] % (Auto) Eos % (Auto) Baso % (Auto) Neut # (Auto) Lymph # (Auto) [place] # (Auto) Eos # (Auto) Baso # (Auto) WBC Differential Differential Comment PT INR APTT Sodium Potassium Chloride Carbon Dioxide Anion Gap BUN Creatinine Estimated GFR Random Glucose Calcium Blood Type B Positive Antibody Screen Negative - Imaging Impressions Chest X-Ray 01/01/18 18:47 CONCLUSION: Right perihilar streakiness is noted consistent with atelectasis and/or developing infiltrate. Clinical correlation is recommended. Venous Doppler Study 01/02/18 08:07 CONCLUSION: No evidence of deep venous thrombosis. Assessment and Plan - Assessment and Plan 72yo F POD#0 s/p R IMN for intertrochanteric femur fracture 1. Partial weightbearing 50% right lower extremity 2. Lovenox for DVT prophylaxis 3. PT for mobilization 4. Dressing changes to start on POD#2 5. Patient should follow-up in office in [address] Ravi
--- NOTE | 2018-01-02 18:33 | XR ---
EXAM DATE: 01/02/2018 6:29 PM EDT AGE/SEX: 72 years / Female INDICATIONS: ORIF right hip. CLINICAL DATA: This is the patient's initial encounter. Patient reports that signs and symptoms have been present for 1 day and indicates a pain score of Nonresponsive. MEDICAL/SURGICAL HISTORY: Non-responsive. Non-responsive. COMPARISON: POI, CT ABDOMEN AND PELVIS W/ CONTRAST, 10/28/2017. . FINDINGS: ORIF of right proximal femur fracture is noted with hardware in good position. CONCLUSION: ORIF of right proximal femur fracture with hardware in good position. Electronically signed by: Rodo James MD 01/02/2018 6:32 PM EDT
[2018-01-02] MEDS ORDERED: fentaNYL Citrate Inj 100 MCG/2 ML Ampul ONE (18:45)
[2018-01-02] MEDS ORDERED: *morphine SULFATE 4 MG/ML PERIprocedure ONLY ONE ×3 (18:50→19:08)
[2018-01-02] MEDS ORDERED: *Meperidine Inj 25 MG/ML Vial PERIprocedural Use ONLY ONE (18:52)
[2018-01-02] MEDS ORDERED: HYDROmorphone PF Inj 2 MG/ML Vial ONE (19:18)
[2018-01-03] MEDS: Morphine Inj 4 MG/ML Vial IV.PUSH PRN ×4 (04:11→17:35)
[2018-01-03] MEDS: Enoxaparin Inj 40 MG/0.4 ML Syringe SQ SCH (09:16)
[2018-01-03] MEDS: Loratadine 10 MG Tablet PO SCH (09:16)
[2018-01-03] MEDS: Docusate Sodium 100 MG Capsule PO SCH ×2 (09:16→21:01)
[2018-01-03] MEDS: guaiFENesin 600 MG ER Tablet PO SCH ×2 (09:16→21:01)
[2018-01-03] MEDS: Gabapentin 300 MG Capsule PO SCH ×3 (09:17→17:35)
--- NOTE | 2018-01-03 10:48 | P.PNIM ---
Subjective Interval history: Pain is fairly well controlled Pt is tolerating oral intake Afebrile Physical Exam Vital signs: Vital Signs 01/02/18 10:53 01/02/18 12:00 01/02/18 16:25 Temperature 98.7 F Pulse Rate 91 H Respiratory Rate 12 Blood Pressure 116/55 L Pulse Oximetry 92 L 98 98 01/02/18 18:32 01/02/18 18:45 01/02/18 19:00 Temperature 97.5 F L Pulse Rate 93 H 86 88 Respiratory Rate 17 11 L 12 Blood Pressure 130/90 154/68 H 156/67 H Pulse Oximetry 100 100 100 01/02/18 19:15 01/02/18 19:30 01/02/18 20:00 Temperature 97.6 F 97.4 F L Pulse Rate 98 H 84 86 Respiratory Rate 12 19 20 Blood Pressure 135/56 L 153/60 H 112/55 L Pulse Oximetry 100 100 98 01/02/18 20:30 01/03/18 00:00 01/03/18 04:00 Temperature 97.5 F L 97.8 F Pulse Rate 81 88 Respiratory Rate 20 20 Blood Pressure 109/53 L 137/60 Pulse Oximetry 98 93 L 94 L 01/03/18 08:00 01/03/18 09:00 Temperature 97.5 F L Pulse Rate 77 Respiratory Rate 18 Blood Pressure 104/65 Pulse Oximetry 97 96 Intake & Output 01/02/18 01/03/18 01/03/18 18:59 06:59 18:59 Intake Total 500 / 500 240 / 240 Output Total 25 / 25 Balance 475 / 475 240 / 240 Weight 44.1 kg Intake: Oral 240 / 240 Anesthesia Amount 500 / 500 Output: Estimated Blood Loss 25 / 25 Other: # Voids 2 Date of Last Bowel Movement 12/30/17 01/02/18 Narrative: General: NAD, AAOx3 Chest: CTA Cardiac: Regular Abd: +BS, soft ND/NT Ext: No edema. right hip bandages are c/d/i Results - Labs CBC & Chem 7: 01/01/18 19:00 01/01/18 19:00 - Imaging Impressions Hip X-Ray 01/02/18 00:00 CONCLUSION: ORIF of right proximal femur fracture with hardware in good position. Assessment and Plan - Assessment (1) Fracture of hip Code(s): S72.009A - Fracture of unspecified part of neck of unspecified femur, initial encounter for closed fracture Status: Acute Plan: 1. Acute fx right proximal femur, intertrochanteric fx s/p trip and fall - Pt s/p intramedullary nail fixation on 01/02/[address] Ravi - Post-op pain control per Ortho - PT daily - DVT prophylaxis with Lovenox - IS - Supportive care 2. Chronic back pain from lumbar spinal stenosis - Pt normally takes [place] 10/325 Q4H PRN and Valium 10mg TID PRN 3. 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 - Pt had subsequent stereotactic radiation to right middle lobe nodule/L1 met. - Currently with 2 spiculated nodules one in each lung - Ongoing tobacco use - Nicotine patch. 4. Sinus congestion/post nasal drip with cough - Claritin 10mg po daily - Mucinex 600mg BID - Consider adding Flonase - Duonebs PRN The exam, history, and the medical decision-making described in the above note were completed with the assistance of the mid-level provider. I reviewed and agree with the findings presented. I attest that I had a [id number] encounter with the patient on the same day, and personally performed and documented my assessment and findings in the medical record. (2) Lumbar stenosis Code(s): M48.061 - Spinal stenosis, lumbar region without neurogenic claudication Status: Chronic (3) Lung cancer Code(s): C34.90 - Malignant neoplasm of unspecified part of unspecified bronchus or lung Status: Chronic (1) Fracture of hip Qualifiers: Encounter type: initial encounter Fracture type: closed Laterality: right Qualified Code(s): S72.001A - Fracture of unspecified part of neck of right femur, initial encounter for closed fracture
--- NOTE | 2018-01-03 19:18 | P.PNOP ---
Subjective Interval history: Patient is resting comfortably in bed with left hip pain with movement. Pain is better than it was before surgery. Physical Exam Vital signs: Vital Signs 01/02/18 19:15 01/02/18 19:30 01/02/18 20:00 Temperature 97.6 F 97.4 F L Pulse Rate 98 H 84 86 Respiratory Rate 12 19 20 Blood Pressure 135/56 L 153/60 H 112/55 L Pulse Oximetry 100 100 98 01/02/18 20:30 01/03/18 00:00 01/03/18 04:00 Temperature 97.5 F L 97.8 F Pulse Rate 81 88 Respiratory Rate 20 20 Blood Pressure 109/53 L 137/60 Pulse Oximetry 98 93 L 94 L 01/03/18 08:00 01/03/18 09:00 01/03/18 12:00 Temperature 97.5 F L 98.0 F Pulse Rate 77 92 H Respiratory Rate 18 18 Blood Pressure 104/65 101/54 L Pulse Oximetry 97 96 95 01/03/18 16:00 Temperature 99.1 F Pulse Rate 96 H Respiratory Rate 18 Blood Pressure 141/70 H Pulse Oximetry 95 Intake & Output 01/03/18 01/03/18 01/04/18 06:59 18:59 06:59 Intake Total 240 / 240 1540 / 1540 Output Total 25 / 25 Balance 240 / 240 1515 / 1515 Weight 44.1 kg Intake: Oral 240 / 240 1040 / 1040 Anesthesia Amount 500 / 500 Output: Estimated Blood Loss 25 / 25 Other: # Voids 2 3 Date of Last Bowel Movement 01/02/18 01/02/18 Narrative: Dressing is C/D/I. EHL/TA/G intact. 2 + pedal pulse calf is soft and nontender. + SILT distally. Results - Labs CBC & Chem 7: 01/01/18 19:00 01/01/18 19:00 Assessment and Plan - Assessment and Plan 72yo F POD#1 s/p R IMN for intertrochanteric femur fracture 1. Partial weightbearing 50% right lower extremity 2. Lovenox for DVT prophylaxis 3. PT for mobilization 4. Dressing changes to start on POD#2 5. Patient should follow-up in office in [address] Ravi 6. Added [place] PO medication. 7. DC to SNF on Friday or Friday.
[2018-01-04] MEDS: Morphine Inj 4 MG/ML Vial IV.PUSH PRN ×2 (00:35→09:03)
[2018-01-04 06:45] LABS: Baso % (Auto) 0.5 % (0.0-2.0); Eos # (Auto) 0.1 th/mm3 (0.0-0.4); Eos % (Auto) 2.6 % (0.0-4.0); Hematocrit 36.6 % (35.0-46.0); Hemoglobin 12.3 gm/dL (11.6-15.3); Lymph # (Auto) 0.6 th/mm3 (1.0-4.8); Lymph % (Auto) 15.1 % (9.0-44.0); Mean Corpuscular HGB Conc 33.6 % (32.0-36.0); Mean Corpuscular Hemoglobin 34.5 pg (27.0-34.0); Mean Corpuscular Volume 102.8 fL (80.0-100.0); Mean Platelet Volume 8.3 fL (7.0-11.0); Mono # (Auto) 0.5 th/mm3 (0.0-0.9); Mono % (Auto) 11.6 % (0.0-8.0); Neut # (Auto) 2.8 th/mm3 (1.8-7.7); Neut % (Auto) 70.2 % (16.0-70.0); Platelet Count 166 th/mm3 (150-450); Red Blood Count 3.56 mil/mm3 (4.00-5.30); Red Cell Distribution Width 13.6 % (11.6-17.2)
[2018-01-04 07:00] LABS: Anion Gap 7 meq/L (5-15); Blood Urea Nitrogen 10 mg/dL (7-18); Calcium 8.2 mg/dL (8.5-10.1); Carbon Dioxide 31.2 meq/L (21.0-32.0); Chloride 106 meq/L (98-107); Glomerular Filtration Rate Greater Than 89 mL/min (>89); Glucose,Random 98 mg/dL (74-106); Potassium 3.4 meq/L (3.5-5.1); Sodium 144 meq/L (136-145)
[2018-01-04] MEDS: Gabapentin 300 MG Capsule PO SCH ×3 (09:00→17:17)
[2018-01-04] MEDS: Docusate Sodium 100 MG Capsule PO SCH ×2 (09:00→20:17)
[2018-01-04] MEDS: guaiFENesin 600 MG ER Tablet PO SCH ×2 (09:00→20:17)
[2018-01-04] MEDS: Enoxaparin Inj 40 MG/0.4 ML Syringe SQ SCH (09:00)
[2018-01-04] MEDS: Loratadine 10 MG Tablet PO SCH (09:00)
--- NOTE | 2018-01-04 10:18 | P.PNIM ---
Subjective Interval history: Pts pain is controlled currently She is tolerating oral intake Denies any abd pain, chest pain, SOB Physical Exam Vital signs: Vital Signs 01/03/18 12:00 01/03/18 16:00 01/03/18 19:37 Temperature 98.0 F 99.1 F Pulse Rate 92 H 96 H Respiratory Rate 18 18 Blood Pressure 101/54 L 141/70 H Pulse Oximetry 95 95 98 01/03/18 20:00 01/04/18 00:00 01/04/18 08:00 Temperature 99.2 F 97.7 F 98.3 F Pulse Rate 101 H 82 84 Respiratory Rate 16 18 18 Blood Pressure 123/60 117/59 L 128/58 L Pulse Oximetry 97 97 95 Intake & Output 01/03/18 01/04/18 01/04/18 18:59 06:59 18:59 Intake Total 1540 / 1540 480 / 480 Output Total Balance 1515 / 1515 480 / 480 Intake: Oral 1040 / 1040 480 / 480 Anesthesia Amount 500 / 500 Output: Estimated Blood Loss Other: # Voids 3 2 Date of Last Bowel Movement 01/02/18 01/02/18 Narrative: General: NAD, AAOx3 Chest: CTA Cardiac: Regular Abd: +BS, soft ND/NT Ext: Right hip dressing is C/D/I. No edema. Results - Labs CBC & Chem 7: 01/04/18 04:43 01/04/18 04:43 Laboratory Results - last 24 hr 01/04/18 01/04/18 04:43 04:43 WBC 4.0 RBC 3.56 L Hgb 12.3 Hct 36.6 MCV 102.8 H MCH 34.5 H MCHC 33.6 RDW 13.6 Plt Count 166 MPV 8.3 Neut % (Auto) 70.2 H Lymph % (Auto) 15.1 [place] % (Auto) 11.6 H Eos % (Auto) 2.6 Baso % (Auto) 0.5 Neut # (Auto) 2.8 Lymph # (Auto) 0.6 L [place] # (Auto) 0.5 Eos # (Auto) 0.1 Baso # (Auto) 0.0 WBC Differential . Differential Comment Auto diff final Sodium 144 Potassium 3.4 L Chloride 106 Carbon Dioxide 31.2 Anion Gap 7 BUN 10 Creatinine 0.24 L Estimated GFR Greater than 89 Random Glucose 98 Calcium 8.2 L - Imaging Femur X-Ray 01/01/18 16:59 CONCLUSION: Acute intertrochanteric fracture of the right proximal femur. Pelvis X-Ray 01/01/18 16:59 CONCLUSION: 1. Acute intertrochanteric fracture of the right proximal femur. 2. Mild degenerative changes involving the hips. Chest X-Ray 01/01/18 18:47 CONCLUSION: Right perihilar streakiness is noted consistent with atelectasis and/or developing infiltrate. Clinical correlation is recommended. Hip X-Ray 01/02/18 00:00 CONCLUSION: ORIF of right proximal femur fracture with hardware in good position. Venous Doppler Study 01/02/18 08:07 CONCLUSION: No evidence of deep venous thrombosis. Assessment and Plan - Assessment (1) Fracture of hip Code(s): S72.009A - Fracture of unspecified part of neck of unspecified femur, initial encounter for closed fracture Status: Acute Plan: 1. Acute fx right proximal femur, intertrochanteric fx s/p trip and fall - Pt s/p intramedullary nail fixation on 01/02/[address] Ravi - Post-op pain control per Ortho - PT daily - DVT prophylaxis with Lovenox - IS - Supportive care - Anticipate d/c to SNF tomorrow (01/05/18) - Pt will need to followup with Dr. Ravi in 2 weeks. - Pt is to be partial weightbearing 50% right lower extremity - Dressing changes to start on POD#2 2. Chronic back pain from lumbar spinal stenosis - Pt normally takes [place] 10/325 Q4H PRN and Valium 10mg TID PRN 3. 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 - Pt had subsequent stereotactic radiation to right middle lobe nodule/L1 met. - Currently with 2 spiculated nodules one in each lung - Ongoing tobacco use - Nicotine patch. 4. Sinus congestion/post nasal drip with cough - Claritin 10mg po daily - Mucinex 600mg BID - Duonebs PRN (2) Lumbar stenosis Code(s): M48.061 - Spinal stenosis, lumbar region without neurogenic claudication Status: Chronic (3) Lung cancer Code(s): C34.90 - Malignant neoplasm of unspecified part of unspecified bronchus or lung Status: Chronic (1) Fracture of hip Qualifiers: Encounter type: initial encounter Fracture type: closed Laterality: right Qualified Code(s): S72.001A - Fracture of unspecified part of neck of right femur, initial encounter for closed fracture
--- NOTE | 2018-01-04 11:24 | P.PNOP ---
Subjective Interval history: hip feels ok Physical Exam Vital signs: Vital Signs 01/03/18 12:00 01/03/18 16:00 01/03/18 19:37 Temperature 98.0 F 99.1 F Pulse Rate 92 H 96 H Respiratory Rate 18 18 Blood Pressure 101/54 L 141/70 H Pulse Oximetry 95 95 98 01/03/18 20:00 01/04/18 00:00 01/04/18 08:00 Temperature 99.2 F 97.7 F 98.3 F Pulse Rate 101 H 82 84 Respiratory Rate 16 18 18 Blood Pressure 123/60 117/59 L 128/58 L Pulse Oximetry 97 97 98 Intake & Output 01/03/18 01/04/18 01/04/18 18:59 06:59 18:59 Intake Total 1540 / 1540 480 / 480 Output Total Balance 1515 / 1515 480 / 480 Intake: Oral 1040 / 1040 480 / 480 Anesthesia Amount 500 / 500 Output: Estimated Blood Loss Other: # Voids 3 2 Date of Last Bowel Movement 01/02/18 01/02/18 01/02/18 Narrative: Right hip dressed and clean, mild swelling. calf is NT with no swelling. Results - Labs CBC & Chem 7: 01/04/18 04:43 01/04/18 04:43 Laboratory Results - last 24 hr 01/04/18 01/04/18 04:43 04:43 WBC 4.0 RBC 3.56 L Hgb 12.3 Hct 36.6 MCV 102.8 H MCH 34.5 H MCHC 33.6 RDW 13.6 Plt Count 166 MPV 8.3 Neut % (Auto) 70.2 H Lymph % (Auto) 15.1 [place] % (Auto) 11.6 H Eos % (Auto) 2.6 Baso % (Auto) 0.5 Neut # (Auto) 2.8 Lymph # (Auto) 0.6 L [place] # (Auto) 0.5 Eos # (Auto) 0.1 Baso # (Auto) 0.0 WBC Differential . Differential Comment Auto diff final Sodium 144 Potassium 3.4 L Chloride 106 Carbon Dioxide 31.2 Anion Gap 7 BUN 10 Creatinine 0.24 L Estimated GFR Greater than 89 Random Glucose 98 Calcium 8.2 L Assessment and Plan - Assessment and Plan 72yo F POD#2 s/p R IMN for intertrochanteric femur fracture 1. Partial weightbearing 50% right lower extremity 2. Lovenox for DVT prophylaxis (I wrote an Rx for lovenox on chart for after discharge) 3. PT for mobilization 4. Dressing changes to start on POD#2 5. Patient should follow-up in office in [address] Ravi 6. Added [place] PO medication. 7. DC to SNF when med cleared
[2018-01-05] MEDS: Docusate Sodium 100 MG Capsule PO SCH (08:43)
[2018-01-05] MEDS: Enoxaparin Inj 40 MG/0.4 ML Syringe SQ SCH (08:43)
[2018-01-05] MEDS: Loratadine 10 MG Tablet PO SCH (08:43)
[2018-01-05] MEDS: guaiFENesin 600 MG ER Tablet PO SCH (08:43)
[2018-01-05] MEDS: Gabapentin 300 MG Capsule PO SCH ×2 (08:43→13:00)
--- NOTE | 2018-01-11 21:35 | P.DS ---
Date of admission: 01/01/18 20:24 Primary care physician: Home Bowles MD Anticipated date of discharge: 01/05/18 Brief History from admission: 72-year-old female with history of anxiety, lung cancer, lumbar and cervical degenerative disc disease presents via private vehicle to ER with complaint of right lower pain ongoing for 2 days. Patient lives with her and apparently some grandchildren as well and noted that 2 days ago she was walking outside to talk with her when she tripped on some uneven concrete falling onto her right side. She noted immediate pain and was unable to ambulate well since that time. Her family apparently urged her to come to the ER over the last 2 days but she was "stubborn" and did not go. Patient reports that she felt the pain would go away but notes that she has been lying in bed the last 2 days strongly. They wish in the ER revealed significantly tender right lower extremity with x-ray findings consistent with right intertrochanteric fracture. Adult medicine service has been asked to admit the patient by orthopedics for planned surgery tomorrow. Pain is relatively well controlled as long as she keeps her right lower extremity still. Her only complaint presently is that she wants something to eat. PMH Plan cancer dating back to 2012 with subsequent robotic assisted right middle lobectomy in November 2012. Anxiety Chronic tobacco use Lumbar and cervical degenerative disc disease with stenosis Chronic back pain due to compression fractures Frequent falls with fractures Osteoporosis [facility] Robotic assisted right middle lobectomy with mediastinal node dissection November 2012 External fixation left wrist fracture 2016 Internal fixation after open reduction right humerus fracture September 2015 Cervical spine surgery in 2016 and apparently in 1998 as well Lumbar spine surgery in 2005 C/S 1978 Home meds (somewhat difficult to obtain) Azalastine nasal spray twice a day Cetirizine 10 mg daily Gabapentin 300 mg 3 times daily Lortab 10/325 one every 6 hours as needed pain Valium 10 mg twice daily as needed anxiety ALL NKDA SH Lives at home with her of 25 years, second marriage Has several grandchildren and possibly one great grandchild living in the home as well Smokes 1-1/2 pack per day as she is done for over 50 years Drinks an occasional beer but no regular alcohol use 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 Originally from [place] DS: Diagnosis - Discharge Diagnosis (1) Fracture of hip Status: Acute (2) Lumbar stenosis Status: Chronic (3) Lung cancer Status: Chronic DS: Medications - Discharge Medications Prescriptions: diazepam 5 mg PO BID PRN #10 tab PRN Reason: Anxiety enoxaparin [Lovenox] 40 mg SUB-Q DAILY 20 Days #20 units hydrocodone-acetaminophen [[place]] 1 tab PO Q4H PRN #18 tab PRN Reason: Pain DS: Summary Hospital Course: - Assessment (1) Fracture of hip Code(s): S72.009A - Fracture of unspecified part of neck of unspecified femur, initial encounter for closed fracture Status: Acute Plan: 1. Acute fx right proximal femur, intertrochanteric fx s/p trip and fall - Pt s/p intramedullary nail fixation on 01/02/[address] Ravi - Post-op pain control per Ortho - PT daily - DVT prophylaxis with Lovenox - IS - Supportive care - Anticipate d/c to SNF tomorrow (01/05/18) - Pt will need to followup with Dr. Ravi in 2 weeks. - Pt is to be partial weightbearing 50% right lower extremity - Dressing changes to start on POD#2 2. Chronic back pain from lumbar spinal stenosis - Pt normally takes [place] 10/325 Q4H PRN and Valium 10mg TID PRN 3. 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 - Pt had subsequent stereotactic radiation to right middle lobe nodule/L1 met. - Currently with 2 spiculated nodules one in each lung - Ongoing tobacco use - Nicotine patch. 4. Sinus congestion/post nasal drip with cough - Claritin 10mg po daily - Mucinex 600mg BID - Duonebs PRN (2) Lumbar stenosis Code(s): M48.061 - Spinal stenosis, lumbar region without neurogenic claudication Status: Chronic (3) Lung cancer Code(s): C34.90 - Malignant neoplasm of unspecified part of unspecified bronchus or lung Status: Chronic - Time Spent with Patient Total time spent providing and/or coordinating discharge services: Greater than 30 minutes - Quality: VTE Deep Vein Thrombosis/Pulmonary Embolism Present on Admission: No Exam Vital signs: heart reg lung cta abd s/nt ext no edema Results Procedures completed during hospitalization: Intramedullary nail right intertrochanteric femur fracture - Impressions ITS Impressions Femur X-Ray 01/01/18 16:59 CONCLUSION: Acute intertrochanteric fracture of the right proximal femur. Pelvis X-Ray 01/01/18 16:59 CONCLUSION: 1. Acute intertrochanteric fracture of the right proximal femur. 2. Mild degenerative changes involving the hips. Chest X-Ray 01/01/18 18:47 CONCLUSION: Right perihilar streakiness is noted consistent with atelectasis and/or developing infiltrate. Clinical correlation is recommended. Hip X-Ray 01/02/18 00:00 CONCLUSION: ORIF of right proximal femur fracture with hardware in good position. Venous Doppler Study 01/02/18 08:07 CONCLUSION: No evidence of deep venous thrombosis. Discharge Plan - Discharge Disposition Patient Disposition: 03 Discharge to SNF - Discharge Condition Condition: Stable - Discharge Order Discharge Orders: Discharge Order (Routine); Ordered 01/05/18 Ordered By: Kathy Wells - Discharge Details Anticipated Discharge Date: 01/05/18 Discharge Comment: Followup with Dr. Ravi in 2 weeks, call for that appt - Physicians Team Primary Care Provider: Home Bowles Attending Provider: Angelo Porras Other Providers: Evelin Ravi MD ; [facility],Agency ; [facility],Agency
== END 2018-01-05 18:20 ==
LOC: NEPD 15:31 → NEDA 20:24 → N06 22:20
PROVIDERS: ADMIT Hospitalist; ATTEND Hospitalist